=== PATIENT | female | born 1975 | race Caucasian/White ===

== ENCOUNTER 2019-03-22 15:04 | Inpatient (IN) | payer MEDICAID | END 2019-03-25 14:18 | disposition home or self-care (01) | LOC: ER 15:04 → OVERFLOW 20:40 → CENTRAL 22:48 | DX: K92.2 Gastrointestinal hemorrhage, unspecified (principal); E86.0 Dehydration; E87.6 Hypokalemia; I10 Essential (primary) hypertension ==

== ENCOUNTER 2023-09-26 10:56 | Inpatient (IN) | payer MEDICAID ==
[~2023-09-26] VITALS: Ht 157.5 cm; Wt 43.6 kg
[~2023-09-26 10:56] MED LIST: LABE200T6 PO; LEVO500T31 PO; METR500T PO
[2023-09-26 11:41] LABS: Urine Bacteria NONE SEEN /hpf (None Seen); Urine Clarity Clear (Clear); Urine Color Orange (Yellow); Urine Mucus FEW (None Seen); Urine Specific Gravity 1.019 (1.001-1.035); Urine WBC 1 /hpf (0 - 5)
[2023-09-26 11:56] LABS: Hemoglobin 14.9 g/dL (12.2-16.2); White Blood Cell 2.3 10^3/uL (4.4-10.8)
[2023-09-26 11:59] LABS: Hematocrit 43.3 % (36.0-46.0); Mean Corpuscular Hemoglobin 34.1 pg (28.0-32.0); Mean Corpuscular Hgb Conc. 34.4 g/dL (32.0-36.0); Red Blood Cells 4.37 10^6/uL (4.0-5.20); Red Cell Distribution Width 13.5 % (11.8-14.3)
[2023-09-26 12:10] LABS: Basophils % (manual) 0 (0.0-2.0); Blast Cells 0; Metamyelocytes % 0; Myelocytes % 0; Promyelocytes % 0; Reactive Lymphocytes 0
[2023-09-26 12:21] LABS: Chloride 86 mmol/L (98-107); Sodium 124 mmol/L (136-145)
[2023-09-26 12:24] LABS: Anion Gap 15 (5-15); Calcium 7.6 mg/dL (8.5-10.1); Carbon Dioxide 23 mmol/L (20-30)
[2023-09-26 12:29] LABS: Glucose 80 mg/dL (74-106)
[2023-09-26 12:31] LABS: Alanine Aminotransferase 69 U/L (7-40); Albumin 3.1 g/dL (3.2-4.8); Aspartate Aminotransferase 37 U/L (13-40); Band Neutrophils % (manual) 10; Bilirubin, Total 3.8 mg/dL (0.2-1.0); Eosinophils % (manual) 1 (0-7); Lymphocytes % (manual) 13 (10.0-50.0); Monocytes % (manual) 53 (0-12)
[2023-09-26 12:33] LABS: Macrocytosis Slight; Platelet Estimate Decreased
[2023-09-26 12:35] LABS: BUN/Creatinine Ratio 13.2 (10.0-20.0); Blood Urea Nitrogen < 5 mg/dL (9-23)
[2023-09-26 14:03] LABS: Alkaline Phosphatase 133 U/L (46-116)
[2023-09-26] MEDS ORDERED: SODIUM CHLORIDE 0.9% 1,000 ML IV ONE ×2 (14:30→17:00)
[2023-09-26] MEDS ORDERED: POTASSIUM CHL 20 Meq TABLET PO ONE (14:30)
[2023-09-26] MEDS ORDERED: CIPROFLOXACIN HCL 500 MG TAB PO ONE (16:00)
[2023-09-26] MEDS ORDERED: metroNIDAZOLE 500 MG TAB PO ONE (16:00)
[2023-09-26] MEDS ORDERED: PANTOPRAZOLE 40 MG/10 ML VIAL INJ IV ONE (17:00)
[2023-09-26 17:35] VITALS: PULSE 112; RESP 16; O2SAT 98
[2023-09-26] MEDS: SODIUM CHLORIDE 0.9% 1,000 ML IV SCH (18:37)
[2023-09-26 18:38] VITALS: BP 129/86; PULSE 105; RESP 18; TEMP 98.6
[2023-09-26 20:00] VITALS: PULSE 88
[2023-09-26] MEDS: ACETAMINOPHEN 325 MG TAB PO PRN (20:24)
[2023-09-26 22:00] VITALS: BP 111/78; PULSE 95; RESP 18; TEMP 98.1; O2SAT 97
[2023-09-26] MEDS: LABETALOL HCL 200 MG TAB PO SCH (22:00)
[2023-09-26] MEDS: metroNIDAZOLE 500MG/100ML 100 ML IV SCH (22:00)
[2023-09-26] MEDS: CIPROFLOXACIN 400MG/200ML 200 ML IV SCH (23:51)
[2023-09-27] VITALS (7 sets, daily range): BP systolic 96–156; BP diastolic 63–97; PULSE 83–131; RESP 17–21; TEMP 97.7–98.3; O2SAT 96–98
[2023-09-27] MEDS: SODIUM CHLORIDE 0.9% 1,000 ML IV SCH ×2 (01:20→08:59)
[2023-09-27] MEDS: ACETAMINOPHEN 325 MG TAB PO PRN ×2 (05:55→15:17)
[2023-09-27] MEDS: metroNIDAZOLE 500MG/100ML 100 ML IV SCH ×3 (05:57→22:00)
[2023-09-27 06:07] LABS: Alanine Aminotransferase 45 U/L (7-40); Albumin 2.7 g/dL (3.2-4.8); Alkaline Phosphatase 98 U/L (46-116); Anion Gap 14 (5-15); Aspartate Aminotransferase 29 U/L (13-40); Calcium 7.5 mg/dL (8.7-10.4); Carbon Dioxide 20 mmol/L (20-30); Glucose 65 mg/dL (74-106)
[2023-09-27 06:08] LABS: Bilirubin, Total 3.2 mg/dL (0.2-1.0); Total Protein 6.2 g/dL (5.7-8.2)
[2023-09-27 06:13] LABS: BUN/Creatinine Ratio 12.8 (10.0-20.0); Blood Urea Nitrogen < 5 mg/dL (9-23); Chloride 96 mmol/L (98-107); Sodium 130 mmol/L (136-145)
[2023-09-27 06:39] LABS: Hematocrit 41.1 % (36.0-46.0); Hemoglobin 13.9 g/dL (12.2-16.2); Mean Corpuscular Hemoglobin 34.4 pg (28.0-32.0); Mean Corpuscular Hgb Conc. 33.8 g/dL (32.0-36.0); Mean Corpuscular Volume 101.8 fL (80.0-100.0); Red Blood Cells 4.04 10^6/uL (4.0-5.20); Red Cell Distribution Width 13.5 % (11.8-14.3)
[2023-09-27 06:41] LABS: White Blood Cell 1.3 10^3/uL (4.4-10.8)
[2023-09-27 06:42] LABS: Basophils % (manual) 0 (0.0-2.0); Blast Cells 0; Eosinophils % (manual) 0 (0-7); Metamyelocytes % 0; Myelocytes % 0; Promyelocytes % 0; Reactive Lymphocytes 0
[2023-09-27 08:03] LABS: Band Neutrophils % (manual) 14; Lymphocytes % (manual) 15 (10.0-50.0); Monocytes % (manual) 43 (0-12)
[2023-09-27 08:04] LABS: Macrocytosis Slight; Platelet Estimate Decreased
[2023-09-27] MEDS: CIPROFLOXACIN 400MG/200ML 200 ML IV SCH ×2 (08:58→22:19)
[2023-09-27] MEDS: PANTOPRAZOLE 40 MG/10 ML VIAL INJ IV SCH (08:58)
[2023-09-27] MEDS: LABETALOL HCL 200 MG TAB PO SCH ×2 (08:59→22:00)
[2023-09-27] MEDS ORDERED: ENOXAPARIN SOD 40 MG/0.4 ML SYRINGE SC SCH (10:00)
[2023-09-27] MEDS: LACTATED RINGER'S 1,000 ML IV SCH (18:30)
[2023-09-27 20:01] LABS: Hematocrit 34.8 % (36.0-46.0); Hemoglobin 11.6 g/dL (12.2-16.2); Mean Corpuscular Hemoglobin 33.2 pg (28.0-32.0); Mean Corpuscular Hgb Conc. 33.3 g/dL (32.0-36.0); Mean Corpuscular Volume 99.7 fL (80.0-100.0); Red Blood Cells 3.49 10^6/uL (4.0-5.20); Red Cell Distribution Width 13.5 % (11.8-14.3)
[2023-09-27] MEDS: NICOTINE 21MG/24 HR TOPICAL PATCH TD SCH (20:06)
[2023-09-27 20:09] LABS: Band Neutrophils % (manual) 0; Basophils % (manual) 0 (0.0-2.0); Blast Cells 0; Eosinophils % (manual) 0 (0-7); Metamyelocytes % 0; Myelocytes % 0; Promyelocytes % 0; Reactive Lymphocytes 0; White Blood Cell 1.5 10^3/uL (4.4-10.8)
[2023-09-27 20:14] LABS: INR 1.29 (0.9-1.15); Prothrombin Time 13.3 sec (9.3-11.8)
[2023-09-27 20:18] LABS: Alanine Aminotransferase 30 U/L (7-40); Albumin 2.2 g/dL (3.2-4.8); Alkaline Phosphatase 71 U/L (46-116); Anion Gap 12 (5-15); Aspartate Aminotransferase 20 U/L (13-40); Calcium 7.1 mg/dL (8.7-10.4); Carbon Dioxide 20 mmol/L (20-30); Chloride 101 mmol/L (98-107); Glucose 82 mg/dL (74-106); Sodium 133 mmol/L (136-145)
[2023-09-27 20:19] LABS: BUN/Creatinine Ratio 17.9 (10.0-20.0); Bilirubin, Total 2.1 mg/dL (0.2-1.0); Blood Urea Nitrogen < 5 mg/dL (9-23)
[2023-09-27 20:21] LABS: Potassium 2.4 mmol/L (3.5-5.1)
[2023-09-27 20:23] LABS: Thyroid Stimulating Hormone 3.43 uIU/mL (0.358-3.74)
[2023-09-27 20:30] LABS: Lymphocytes % (manual) 21 (10.0-50.0); Monocytes % (manual) 50 (0-12); Platelet Estimate Decreased
[2023-09-27] MEDS: MORPHINE SULFATE INJ 2 MG/ml SYRG IV PRN (21:18)
[2023-09-27] MEDS ORDERED: POTASSIUM CHL 20MEQ/100ML 100 ML IV ONE (21:45)
[2023-09-27] MEDS ORDERED: POTASSIUM CHL 20 Meq TABLET PO ONE (21:45)
[2023-09-28] VITALS (7 sets, daily range): BP systolic 99–138; BP diastolic 68–85; PULSE 100–111; RESP 18–20; TEMP 98–98.6; O2SAT 95–99
[2023-09-28] MEDS: LACTATED RINGER'S 1,000 ML IV SCH ×2 (01:03→12:30)
[2023-09-28] MEDS: MORPHINE SULFATE INJ 2 MG/ml SYRG IV PRN (04:20)
[2023-09-28] MEDS: metroNIDAZOLE 500MG/100ML 100 ML IV SCH ×3 (05:46→23:10)
[2023-09-28] MEDS: NICOTINE 21MG/24 HR TOPICAL PATCH TD SCH (10:00)
[2023-09-28] MEDS: PANTOPRAZOLE 40 MG/10 ML VIAL INJ IV SCH (10:00)
[2023-09-28] MEDS: LABETALOL HCL 200 MG TAB PO SCH ×2 (10:01→22:26)
[2023-09-28] MEDS: CIPROFLOXACIN 400MG/200ML 200 ML IV SCH ×2 (10:01→21:37)
[2023-09-28 10:11] LABS: Hemoglobin 12.1 g/dL (12.2-16.2)
[2023-09-28 10:15] LABS: Hematocrit 35.2 % (36.0-46.0); Mean Corpuscular Hemoglobin 34.3 pg (28.0-32.0); Mean Corpuscular Hgb Conc. 34.3 g/dL (32.0-36.0); Mean Corpuscular Volume 100.1 fL (80.0-100.0); Red Blood Cells 3.52 10^6/uL (4.0-5.20); Red Cell Distribution Width 13.5 % (11.8-14.3)
[2023-09-28 10:21] LABS: Alanine Aminotransferase 25 U/L (7-40); Alkaline Phosphatase 86 U/L (46-116); Anion Gap 8 (5-15); Aspartate Aminotransferase 19 U/L (13-40); Calcium 7.5 mg/dL (8.5-10.1); Carbon Dioxide 23 mmol/L (20-30); Chloride 101 mmol/L (98-107); Glucose 90 mg/dL (74-106); Potassium 2.6 mmol/L (3.5-5.1); Sodium 132 mmol/L (136-145)
[2023-09-28 10:22] LABS: BUN/Creatinine Ratio 29.4 (10.0-20.0); Bilirubin, Total 1.6 mg/dL (0.2-1.0); Blood Urea Nitrogen < 5 mg/dL (9-23); Total Protein 4.7 g/dL (5.7-8.2)
[2023-09-28 10:23] LABS: Hepatitis B Core Total AB Negative (Negative)
[2023-09-28 10:57] LABS: Free T4 (Free Thyroxine) 0.78 ng/dL (0.89-1.76)
[2023-09-28 10:58] LABS: Folate (Folic Acid) 2.56 ng/mL (>5.38)
[2023-09-28] MEDS: FILGRASTIM (TBO) 300 MCG/0.5 ML SYRG SC SCH (10:59)
[2023-09-28 11:08] LABS: Basophils % (manual) 0 (0.0-2.0); Blast Cells 0; Metamyelocytes % 0; Myelocytes % 0; Promyelocytes % 0; Reactive Lymphocytes 0; White Blood Cell 1.7 10^3/uL (4.4-10.8)
[2023-09-28] MEDS ORDERED: GADOTERATE MEG 10 MMOL/20ml INJ (0.5MMOL/ml) IV ONE (11:29)
[2023-09-28] MEDS: Glucerna Carbsteady SHAKE Stawberry 8oz PO SCH ×3 (12:00→18:24)
[2023-09-28 13:08] LABS: Hepatitis A Total Antibody Negative (Negative); Hepatitis B Surface Antibody Negative (Negative); Hepatitis B Surface Antigen Negative (Negative); Hepatitis C Antibody Negative (Negative)
[2023-09-28 13:20] LABS: Band Neutrophils % (manual) 6; Eosinophils % (manual) 1 (0-7); Lymphocytes % (manual) 6 (10.0-50.0); Monocytes % (manual) 28 (0-12)
[2023-09-28 13:21] LABS: Platelet Estimate Decreased
[2023-09-29] VITALS (7 sets, daily range): BP systolic 87–114; BP diastolic 58–79; PULSE 87–98; RESP 17–19; TEMP 97.4–97.9; O2SAT 96–99
[2023-09-29] MEDS: LACTATED RINGER'S 1,000 ML IV SCH ×4 (01:03→20:05)
[2023-09-29 05:58] LABS: Hemoglobin 10.7 g/dL (12.2-16.2); Mean Corpuscular Hgb Conc. 35.2 g/dL (32.0-36.0); White Blood Cell 3.3 10^3/uL (4.4-10.8)
[2023-09-29 06:01] LABS: Hematocrit 30.3 % (36.0-46.0); Mean Corpuscular Hemoglobin 35.1 pg (28.0-32.0); Mean Corpuscular Volume 99.7 fL (80.0-100.0); Red Blood Cells 3.04 10^6/uL (4.0-5.20); Red Cell Distribution Width 13.4 % (11.8-14.3)
[2023-09-29] MEDS: metroNIDAZOLE 500MG/100ML 100 ML IV SCH ×3 (06:03→22:33)
[2023-09-29 06:24] LABS: Alanine Aminotransferase 16 U/L (7-40); Albumin 1.9 g/dL (3.2-4.8); Alkaline Phosphatase 48 U/L (46-116); Anion Gap 8 (5-15); Aspartate Aminotransferase 16 U/L (13-40); Calcium 7.3 mg/dL (8.5-10.1); Carbon Dioxide 24 mmol/L (20-30); Chloride 99 mmol/L (98-107); Glucose 78 mg/dL (74-106); Potassium 2.5 mmol/L (3.5-5.1); Sodium 131 mmol/L (136-145)
[2023-09-29 06:25] LABS: Band Neutrophils % (manual) 0; Basophils % (manual) 0 (0.0-2.0); Bilirubin, Total 1.4 mg/dL (0.2-1.0); Blast Cells 0; Metamyelocytes % 0; Myelocytes % 0; Promyelocytes % 0; Reactive Lymphocytes 0; Total Protein 4.5 g/dL (5.7-8.2)
[2023-09-29 06:30] LABS: BUN/Creatinine Ratio 27.8 (10.0-20.0); Blood Urea Nitrogen < 5 mg/dL (9-23)
[2023-09-29] MEDS: Glucerna Carbsteady SHAKE Stawberry 8oz PO SCH ×4 (08:00→17:57)
[2023-09-29] MEDS: FILGRASTIM (TBO) 300 MCG/0.5 ML SYRG SC SCH (10:00)
[2023-09-29] MEDS: LABETALOL HCL 200 MG TAB PO SCH ×2 (10:00→22:28)
[2023-09-29] MEDS: NICOTINE 21MG/24 HR TOPICAL PATCH TD SCH (10:00)
[2023-09-29 10:05] LABS: Eosinophils % (manual) 1 (0-7); Lymphocytes % (manual) 18 (10.0-50.0); Monocytes % (manual) 19 (0-12); Platelet Estimate Decreased
[2023-09-29] MEDS: PANTOPRAZOLE 40 MG/10 ML VIAL INJ IV SCH (10:26)
[2023-09-29] MEDS: CIPROFLOXACIN 400MG/200ML 200 ML IV SCH ×2 (10:26→21:35)
[2023-09-30] VITALS (7 sets, daily range): BP systolic 82–129; BP diastolic 50–91; PULSE 61–91; RESP 16–20; TEMP 97.4–98.1; O2SAT 94–100
[2023-09-30] MEDS: metroNIDAZOLE 500MG/100ML 100 ML IV SCH ×3 (05:33→21:07)
[2023-09-30] MEDS: LACTATED RINGER'S 1,000 ML IV SCH ×4 (06:42→21:10)
[2023-09-30 07:04] LABS: Red Blood Cells 3.06 10^6/uL (4.0-5.20); White Blood Cell 3.7 10^3/uL (4.4-10.8)
[2023-09-30 07:07] LABS: Hemoglobin 10.5 g/dL (12.2-16.2); Mean Corpuscular Hemoglobin 34.4 pg (28.0-32.0); Mean Corpuscular Volume 101.3 fL (80.0-100.0); Red Cell Distribution Width 13.2 % (11.8-14.3)
[2023-09-30 07:08] LABS: Alanine Aminotransferase 12 U/L (7-40); Albumin 1.9 g/dL (3.2-4.8); Alkaline Phosphatase 50 U/L (46-116); Anion Gap 10 (5-15); Aspartate Aminotransferase 21 U/L (13-40); Calcium 7.2 mg/dL (8.5-10.1); Carbon Dioxide 24 mmol/L (20-30); Chloride 98 mmol/L (98-107); Glucose 74 mg/dL (74-106); Sodium 132 mmol/L (136-145)
[2023-09-30 07:09] LABS: Bilirubin, Total 1.2 mg/dL (0.2-1.0); Total Protein 4.5 g/dL (5.7-8.2)
[2023-09-30 07:10] LABS: BUN/Creatinine Ratio 26.3 (10.0-20.0); Blood Urea Nitrogen < 5 mg/dL (9-23)
[2023-09-30 07:12] LABS: Potassium 2.4 mmol/L (3.5-5.1)
[2023-09-30 07:23] LABS: Band Neutrophils % (manual) 0; Basophils % (manual) 0 (0.0-2.0); Blast Cells 0; Metamyelocytes % 0; Myelocytes % 0; Promyelocytes % 0; Reactive Lymphocytes 0
[2023-09-30] MEDS ORDERED: POTASSIUM CHL 20 Meq TABLET PO ONE (07:30)
[2023-09-30] MEDS: Glucerna Carbsteady SHAKE Stawberry 8oz PO SCH ×2 (08:00→12:00)
[2023-09-30] MEDS ORDERED: OMNIPAQUE 12mg/ml 500ml ORAL SOLUTION PO ONE (08:34)
[2023-09-30] MEDS: LABETALOL HCL 200 MG TAB PO SCH ×2 (10:00→23:23)
[2023-09-30] MEDS: FILGRASTIM (TBO) 300 MCG/0.5 ML SYRG SC SCH (10:00)
[2023-09-30] MEDS: NICOTINE 21MG/24 HR TOPICAL PATCH TD SCH (10:00)
[2023-09-30] MEDS: PANTOPRAZOLE 40 MG/10 ML VIAL INJ IV SCH (11:51)
[2023-09-30] MEDS: CIPROFLOXACIN 400MG/200ML 200 ML IV SCH ×2 (11:51→22:05)
[2023-09-30 12:32] LABS: Eosinophils % (manual) 1 (0-7); Lymphocytes % (manual) 10 (10.0-50.0); Monocytes % (manual) 10 (0-12)
[2023-09-30 12:33] LABS: Platelet Estimate Decreased
[2023-09-30] MEDS: ACETAMINOPHEN 325 MG TAB PO PRN (21:05)
[2023-10-01] MEDS: LACTATED RINGER'S 1,000 ML IV SCH ×2 (03:19→11:01)
[2023-10-01 05:00] VITALS: BP 90/62; PULSE 74; RESP 19; TEMP 97.3; O2SAT 91
[2023-10-01] MEDS: metroNIDAZOLE 500MG/100ML 100 ML IV SCH ×3 (05:44→22:16)
[2023-10-01 06:51] LABS: Basophils # (auto) 0 10 ^3/uL (0-0.2); Basophils % (auto) 0.3 % (0.0-2.0); Eosinophils # (auto) 0 10 ^3/uL (0-0.8); Lymphocytes # (auto) 0.5 10 ^3/uL (0.4-5.4); Mean Corpuscular Hemoglobin 33.9 pg (28.0-32.0); Mean Corpuscular Hgb Conc. 33.9 g/dL (32.0-36.0); Mean Corpuscular Volume 100.1 fL (80.0-100.0); Monocytes # (auto) 0.6 10 ^3/uL (0-1.3)
[2023-10-01 06:54] LABS: Eosinophils % (auto) 1.1 % (0.0-7.0); Hematocrit 30.8 % (36.0-46.0); Hemoglobin 10.4 g/dL (12.2-16.2); Lymphocytes % (auto) 12.9 % (10.0-50.0); Monocytes % (auto) 15.7 % (0.0-12.0); Neutrophils # (auto) 2.8 10 ^3/uL (1.6-8.6); Nucleated Red Blood Cells % 0.2 %; Red Blood Cells 3.08 10^6/uL (4.0-5.20); Red Cell Distribution Width 13.3 % (11.8-14.3)
[2023-10-01 07:17] LABS: Alanine Aminotransferase 12 U/L (7-40); Albumin 1.9 g/dL (3.2-4.8); Alkaline Phosphatase 52 U/L (46-116); Anion Gap 9 (5-15); Aspartate Aminotransferase 26 U/L (13-40); Calcium 7.2 mg/dL (8.7-10.4); Carbon Dioxide 24 mmol/L (20-30); Chloride 95 mmol/L (98-107); Glucose 76 mg/dL (74-106); Potassium 3.3 mmol/L (3.5-5.1); Sodium 128 mmol/L (136-145)
[2023-10-01 07:18] LABS: Bilirubin, Total 1.3 mg/dL (0.2-1.0); Total Protein 4.7 g/dL (5.7-8.2)
[2023-10-01 07:24] LABS: BUN/Creatinine Ratio 23.8 (10.0-20.0); Blood Urea Nitrogen < 5 mg/dL (9-23)
[2023-10-01] MEDS: Glucerna Carbsteady SHAKE Stawberry 8oz PO SCH ×3 (07:41→17:00)
[2023-10-01] MEDS ORDERED: POTASSIUM CHLORIDE 60 MEQ, LIDOCAINE 1% (LOCAL ANESTH.) 6 ML in SODIUM CHL 0.9% 500 ML IV ONE ×2 (08:30→08:45)
[2023-10-01] MEDS: CIPROFLOXACIN 400MG/200ML 200 ML IV SCH ×2 (09:07→22:16)
[2023-10-01] MEDS: PANTOPRAZOLE 40 MG/10 ML VIAL INJ IV SCH (09:07)
[2023-10-01] MEDS: NICOTINE 21MG/24 HR TOPICAL PATCH TD SCH (09:21)
[2023-10-01 13:06] VITALS: BP 105/74; PULSE 92; RESP 18; TEMP 97.4; O2SAT 97
[2023-10-01] MEDS: MORPHINE SULFATE INJ 2 MG/ml SYRG IV PRN ×2 (13:24→22:16)
[2023-10-01] MEDS: D5W/SOD CHL 0.45% 1,000 ML IV SCH ×2 (14:23→20:45)
[2023-10-01 17:00] VITALS: BP 130/89; PULSE 106; RESP 20; TEMP 97.7; O2SAT 98
[2023-10-01 20:00] VITALS: RESP 18; O2SAT 97
[2023-10-01 22:00] VITALS: BP 142/103; PULSE 114; RESP 20; TEMP 98.3; O2SAT 97
[2023-10-02 05:00] VITALS: BP 149/104; PULSE 121; RESP 23; TEMP 97.5; O2SAT 93
[2023-10-02] MEDS: D5W/SOD CHL 0.45% 1,000 ML IV SCH ×3 (05:06→22:27)
[2023-10-02] MEDS: metroNIDAZOLE 500MG/100ML 100 ML IV SCH ×3 (05:28→22:26)
[2023-10-02 06:09] LABS: Basophils # (auto) 0 10 ^3/uL (0-0.2); Eosinophils # (auto) 0 10 ^3/uL (0-0.8); Hemoglobin 13.3 g/dL (12.2-16.2); Lymphocytes # (auto) 0.4 10 ^3/uL (0.4-5.4); Mean Corpuscular Hemoglobin 34.2 pg (28.0-32.0); Monocytes # (auto) 0.7 10 ^3/uL (0-1.3)
[2023-10-02 06:15] LABS: Basophils % (auto) 0.1 % (0.0-2.0); Eosinophils % (auto) 0.2 % (0.0-7.0); Hematocrit 38.8 % (36.0-46.0); Lymphocytes % (auto) 6.7 % (10.0-50.0); Mean Corpuscular Hgb Conc. 34.3 g/dL (32.0-36.0); Mean Corpuscular Volume 99.7 fL (80.0-100.0); Monocytes % (auto) 11.2 % (0.0-12.0); Neutrophils # (auto) 5.2 10 ^3/uL (1.6-8.6); Neutrophils % (auto) 81.8 % (37.0-80.0); Nucleated Red Blood Cells % 0.1 %; Red Blood Cells 3.89 10^6/uL (4.0-5.20); Red Cell Distribution Width 13.5 % (11.8-14.3); White Blood Cell 6.3 10^3/uL (4.4-10.8)
[2023-10-02 06:24] LABS: Alanine Aminotransferase 11 U/L (7-40); Albumin 2.2 g/dL (3.2-4.8); Alkaline Phosphatase 58 U/L (46-116); Anion Gap 5 (5-15); Aspartate Aminotransferase 27 U/L (13-40); Calcium 7.4 mg/dL (8.5-10.1); Carbon Dioxide 25 mmol/L (20-30); Chloride 98 mmol/L (98-107); Glucose 98 mg/dL (74-106); Potassium 3.4 mmol/L (3.5-5.1); Sodium 128 mmol/L (136-145)
[2023-10-02 06:25] LABS: BUN/Creatinine Ratio 22.7 (10.0-20.0); Bilirubin, Total 1.5 mg/dL (0.2-1.0); Blood Urea Nitrogen < 5 mg/dL (9-23); Total Protein 5.5 g/dL (5.7-8.2)
[2023-10-02] MEDS: MORPHINE SULFATE INJ 2 MG/ml SYRG IV PRN (06:46)
[2023-10-02] MEDS: Glucerna Carbsteady SHAKE Stawberry 8oz PO SCH ×3 (08:00→16:51)
[2023-10-02 08:53] VITALS: BP 112/74; PULSE 104; RESP 20; TEMP 97.9; O2SAT 92
[2023-10-02] MEDS: PANTOPRAZOLE 40 MG/10 ML VIAL INJ IV SCH (08:55)
[2023-10-02] MEDS: CIPROFLOXACIN 400MG/200ML 200 ML IV SCH ×2 (08:55→22:26)
[2023-10-02] MEDS: NICOTINE 21MG/24 HR TOPICAL PATCH TD SCH (08:55)
[2023-10-02 12:40] VITALS: BP 119/88; PULSE 101; RESP 20; TEMP 97.1; O2SAT 96
[2023-10-02 16:51] VITALS: BP 136/98; PULSE 98; RESP 19; TEMP 97.7; O2SAT 100
[2023-10-02 22:00] VITALS: BP 131/91; PULSE 100; RESP 16; TEMP 97.4; O2SAT 97
[2023-10-03] MEDS: D5W/SOD CHL 0.45% 1,000 ML IV SCH ×3 (04:45→20:45)
[2023-10-03 05:00] VITALS: BP 167/106; PULSE 125; RESP 25; TEMP 97.2; O2SAT 97
[2023-10-03 06:00] VITALS: BP 142/90
[2023-10-03] MEDS: metroNIDAZOLE 500MG/100ML 100 ML IV SCH ×3 (06:00→22:30)
[2023-10-03 07:30] VITALS: BP 95/62; PULSE 74; TEMP 36.2
[2023-10-03] MEDS: Glucerna Carbsteady SHAKE Stawberry 8oz PO SCH ×3 (08:00→16:38)
[2023-10-03 09:20] LABS: Alanine Aminotransferase 14 U/L (7-40); Albumin 2.3 g/dL (3.2-4.8); Alkaline Phosphatase 68 U/L (46-116); Anion Gap 10 (5-15); Aspartate Aminotransferase 28 U/L (13-40); Calcium 7.7 mg/dL (8.5-10.1); Carbon Dioxide 22 mmol/L (20-30); Chloride 98 mmol/L (98-107); Glucose 82 mg/dL (74-106); Potassium 3.2 mmol/L (3.5-5.1); Sodium 130 mmol/L (136-145)
[2023-10-03 09:21] LABS: BUN/Creatinine Ratio 16.7 (10.0-20.0); Bilirubin, Total 1.8 mg/dL (0.2-1.0); Blood Urea Nitrogen < 5 mg/dL (9-23); Total Protein 6.1 g/dL (5.7-8.2)
[2023-10-03 09:23] LABS: Basophils # (auto) 0 10 ^3/uL (0-0.2); Basophils % (auto) 0.3 % (0.0-2.0); Eosinophils # (auto) 0 10 ^3/uL (0-0.8); Eosinophils % (auto) 0.2 % (0.0-7.0); Hematocrit 39.2 % (36.0-46.0); Hemoglobin 13.3 g/dL (12.2-16.2); Lymphocytes # (auto) 0.7 10 ^3/uL (0.4-5.4); Lymphocytes % (auto) 6.8 % (10.0-50.0); Mean Corpuscular Hemoglobin 33.8 pg (28.0-32.0); Mean Corpuscular Volume 99.2 fL (80.0-100.0); Monocytes # (auto) 1.1 10 ^3/uL (0-1.3); Monocytes % (auto) 11.5 % (0.0-12.0); Neutrophils % (auto) 81.2 % (37.0-80.0); Nucleated Red Blood Cells % 0.1 %; Red Blood Cells 3.95 10^6/uL (4.0-5.20); Red Cell Distribution Width 13.4 % (11.8-14.3); White Blood Cell 9.8 10^3/uL (4.4-10.8)
[2023-10-03] MEDS: NICOTINE 21MG/24 HR TOPICAL PATCH TD SCH (10:00)
[2023-10-03] MEDS: CIPROFLOXACIN 400MG/200ML 200 ML IV SCH ×2 (10:00→22:53)
[2023-10-03] MEDS: PANTOPRAZOLE 40 MG/10 ML VIAL INJ IV SCH (10:00)
[2023-10-03] MEDS: FOLIC ACID 1 MG, MULTIPLE VITAMIN 10 ML, MAGNESIUM SULF SDV 50% 8 MEQ, THIAMINE INJ 100... INJ SCH ×10 (10:49→16:02)
[2023-10-03] MEDS: LACTULOSE 20Gm/30ML SOLN PO SCH ×3 (10:57→23:02)
[2023-10-03 12:28] VITALS: BP 103/76; PULSE 119; RESP 20; TEMP 98.4; O2SAT 93
[2023-10-03] MEDS ORDERED: GASTROGRAFIN 120 ML SOL ONE (16:02)
[2023-10-03 20:00] VITALS: PULSE 105; RESP 20
[2023-10-03 22:00] VITALS: BP 107/69; PULSE 105; RESP 20; TEMP 97.7
[2023-10-04] VITALS (7 sets, daily range): BP systolic 90–127; BP diastolic 64–83; PULSE 88–113; RESP 17–18; TEMP 97.5–98.2; O2SAT 93–100
[2023-10-04] MEDS: D5W/SOD CHL 0.45% 1,000 ML IV SCH ×3 (04:45→20:00)
[2023-10-04] MEDS: LACTULOSE 20Gm/30ML SOLN PO SCH ×3 (06:26→18:00)
[2023-10-04] MEDS: metroNIDAZOLE 500MG/100ML 100 ML IV SCH ×3 (06:26→21:09)
[2023-10-04] MEDS: Glucerna Carbsteady SHAKE Stawberry 8oz PO SCH ×3 (08:00→18:00)
[2023-10-04] MEDS: NICOTINE 21MG/24 HR TOPICAL PATCH TD SCH (10:00)
[2023-10-04] MEDS: PANTOPRAZOLE 40 MG/10 ML VIAL INJ IV SCH (10:30)
[2023-10-04] MEDS: CIPROFLOXACIN 400MG/200ML 200 ML IV SCH ×2 (10:30→21:47)
[2023-10-04] MEDS ORDERED: TPN PER PHARMACY 0 ML IV SCH ×2 (10:45→11:00)
[2023-10-04 12:27] LABS: Alanine Aminotransferase 10 U/L (7-40); Albumin 1.9 g/dL (3.2-4.8); Alkaline Phosphatase 57 U/L (46-116); Anion Gap 7 (5-15); Aspartate Aminotransferase 22 U/L (13-40); Bilirubin, Total 1.2 mg/dL (0.2-1.0); Calcium 7.1 mg/dL (8.5-10.1); Carbon Dioxide 28 mmol/L (20-30); Chloride 95 mmol/L (98-107); Glucose 126 mg/dL (74-106); Phosphorus 1.9 mg/dL (2.4-5.1); Potassium 2.5 mmol/L (3.5-5.1); Sodium 130 mmol/L (136-145); Triglycerides 58 mg/dL (< 150)
[2023-10-04 12:31] LABS: BUN/Creatinine Ratio 21.7 (10.0-20.0); Blood Urea Nitrogen < 5 mg/dL (9-23)
[2023-10-04 12:45] LABS: Magnesium 1.6 mg/dL (1.6-2.6)
[2023-10-04] MEDS ORDERED: POTASSIUM PHOSPHATE 44 MEQ in D5W 5% 250 ML IV ONE (14:00)
[2023-10-04 14:54] LABS: Basophils # (auto) 0 10 ^3/uL (0-0.2); Basophils % (auto) 0.2 % (0.0-2.0); Eosinophils # (auto) 0 10 ^3/uL (0-0.8); Eosinophils % (auto) 0.3 % (0.0-7.0); Hematocrit 32.6 % (36.0-46.0); Hemoglobin 10.9 g/dL (12.2-16.2); Lymphocytes # (auto) 0.7 10 ^3/uL (0.4-5.4); Lymphocytes % (auto) 8.5 % (10.0-50.0); Mean Corpuscular Hemoglobin 33.1 pg (28.0-32.0); Mean Corpuscular Hgb Conc. 33.5 g/dL (32.0-36.0); Mean Corpuscular Volume 98.7 fL (80.0-100.0); Monocytes # (auto) 1.1 10 ^3/uL (0-1.3); Monocytes % (auto) 13.5 % (0.0-12.0); Neutrophils # (auto) 6.3 10 ^3/uL (1.6-8.6); Neutrophils % (auto) 77.5 % (37.0-80.0); Nucleated Red Blood Cells % 0.1 %; Red Cell Distribution Width 13.3 % (11.8-14.3); White Blood Cell 8.2 10^3/uL (4.4-10.8)
[2023-10-04 15:14] LABS: INR 1.59 (0.9-1.15); Partial Thromboplastin Time 39.4 SEC (24.5-34.5); Prothrombin Time 16.2 sec (9.3-11.8)
[2023-10-04] MEDS: FOLIC ACID 1 MG, MULTIPLE VITAMIN 10 ML, MAGNESIUM SULF SDV 50% 8 MEQ, THIAMINE INJ 100... INJ SCH ×5 (16:44)
[2023-10-04] MEDS ORDERED: LIDOCAINE 1% (LOCAL ANESTH.) PF 5ml SDV ID ONE (18:30)
[2023-10-04] MEDS ORDERED: PPN PER PHARMACY IV NR ×10 (20:00)
[2023-10-04] MEDS ORDERED: DEXTROSE (50%) 50ML SYRG IV SCH (20:00)
[2023-10-04] MEDS: SODIUM CHLOR 0.9% PF (SALINE LOCK) 10ML VIAL/SYR IV SCH (21:47)
[2023-10-05] VITALS (7 sets, daily range): BP systolic 100–112; BP diastolic 65–71; PULSE 97–117; RESP 14–20; TEMP 97.3–98.3; O2SAT 93–97
[2023-10-05] MEDS: ACCU-CHEK COMFORT CURVE STRIP VI SCH ×4 (01:18→16:34)
[2023-10-05] MEDS: InsuLIN REG 1unit/0.01ml Soln (100units/ml) SC SCH ×4 (01:20→16:34)
[2023-10-05] MEDS: LACTULOSE 20Gm/30ML SOLN PO SCH ×4 (01:20→18:00)
[2023-10-05] MEDS: metroNIDAZOLE 500MG/100ML 100 ML IV SCH ×3 (06:18→21:57)
[2023-10-05 07:07] LABS: Albumin 1.8 g/dL (3.2-4.8); Alkaline Phosphatase 54 U/L (46-116); Anion Gap 4 (5-15); Aspartate Aminotransferase 18 U/L (13-40); Bilirubin, Total 0.9 mg/dL (0.2-1.0); Calcium 6.8 mg/dL (8.7-10.4); Carbon Dioxide 30 mmol/L (20-30); Chloride 96 mmol/L (98-107); Glucose 98 mg/dL (74-106); Magnesium 1.9 mg/dL (1.6-2.6); Phosphorus 1.8 mg/dL (2.4-5.1); Sodium 130 mmol/L (136-145); Total Protein 4.8 g/dL (5.7-8.2)
[2023-10-05 07:11] LABS: Alanine Aminotransferase < 9 U/L (7-40); Blood Urea Nitrogen < 5 mg/dL (9-23)
[2023-10-05 07:14] LABS: Potassium 2.4 mmol/L (3.5-5.1)
[2023-10-05] MEDS: Glucerna Carbsteady SHAKE Stawberry 8oz PO SCH ×3 (08:00→18:00)
[2023-10-05] MEDS ORDERED: POTASSIUM CHL 20MEQ/50ML 50 ML IV ONE (08:00)
[2023-10-05] MEDS: PANTOPRAZOLE 40 MG/10 ML VIAL INJ IV SCH (08:36)
[2023-10-05] MEDS: POTASSIUM CHL 20MEQ/50ML 50 ML IV SCH ×3 (08:37→16:13)
[2023-10-05] MEDS: CIPROFLOXACIN 400MG/200ML 200 ML IV SCH ×2 (08:37→21:57)
[2023-10-05] MEDS: SODIUM CHLOR 0.9% PF (SALINE LOCK) 10ML VIAL/SYR IV SCH ×2 (08:37→22:00)
[2023-10-05] MEDS ORDERED: GASTROGRAFIN 120 ML SOL ONE (08:58)
[2023-10-05] MEDS ORDERED: SODIUM PHOSPHATES 40 MEQ in D5W 5% 250 ML IV ONE (09:30)
[2023-10-05] MEDS: NICOTINE 21MG/24 HR TOPICAL PATCH TD SCH (10:00)
[2023-10-05] MEDS: ONDANSETRON HCL 4 MG/2 ML VIAL IV PRN (16:08)
[2023-10-05] MEDS: MORPHINE SULFATE INJ 2 MG/ml SYRG IV PRN (16:14)
[2023-10-05] MEDS ORDERED: TPN PER PHARMACY IV NR ×22 (20:00)
[2023-10-05] MEDS: D5W/SOD CHL 0.45% 1,000 ML IV SCH (20:00)
[2023-10-05] MEDS: ACETAMINOPHEN 325 MG TAB PO PRN (21:57)
[2023-10-06] VITALS (7 sets, daily range): BP systolic 104–147; BP diastolic 57–68; PULSE 68–116; RESP 16–19; TEMP 97.8–98.3; O2SAT 93–97
[2023-10-06] MEDS: InsuLIN REG 1unit/0.01ml Soln (100units/ml) SC SCH ×4 (00:03→17:53)
[2023-10-06] MEDS: ACCU-CHEK COMFORT CURVE STRIP VI SCH ×4 (05:45→17:49)
[2023-10-06] MEDS: metroNIDAZOLE 500MG/100ML 100 ML IV SCH ×3 (05:45→21:27)
[2023-10-06 05:52] LABS: Albumin 1.9 g/dL (3.2-4.8); Alkaline Phosphatase 64 U/L (46-116); Anion Gap 3 (5-15); Aspartate Aminotransferase 24 U/L (13-40); Calcium 6.6 mg/dL (8.7-10.4); Carbon Dioxide 31 mmol/L (20-30); Chloride 98 mmol/L (98-107); Glucose 97 mg/dL (74-106); Magnesium 1.7 mg/dL (1.6-2.6); Potassium 2.7 mmol/L (3.5-5.1); Sodium 132 mmol/L (136-145)
[2023-10-06] MEDS: LACTULOSE 20Gm/30ML SOLN PO SCH ×4 (05:52→17:49)
[2023-10-06 05:53] LABS: Bilirubin, Total 1.2 mg/dL (0.2-1.0); Phosphorus 3.4 mg/dL (2.4-5.1)
[2023-10-06 06:25] LABS: Alanine Aminotransferase < 9 U/L (7-40); BUN/Creatinine Ratio 27.8 (10.0-20.0); Blood Urea Nitrogen < 5 mg/dL (9-23)
[2023-10-06] MEDS: Glucerna Carbsteady SHAKE Stawberry 8oz PO SCH ×3 (08:18→17:49)
[2023-10-06] MEDS: CIPROFLOXACIN 400MG/200ML 200 ML IV SCH ×2 (09:45→21:31)
[2023-10-06] MEDS: PANTOPRAZOLE 40 MG/10 ML VIAL INJ IV SCH (09:45)
[2023-10-06] MEDS: SODIUM CHLOR 0.9% PF (SALINE LOCK) 10ML VIAL/SYR IV SCH ×2 (09:46→21:28)
[2023-10-06] MEDS: NICOTINE 21MG/24 HR TOPICAL PATCH TD SCH (09:46)
[2023-10-06] MEDS: ACETAMINOPHEN 325 MG TAB PO PRN (12:00)
[2023-10-06] MEDS: POTASSIUM CHL 20MEQ/50ML 50 ML IV SCH ×4 (12:00→19:22)
[2023-10-06] MEDS ORDERED: TPN PER PHARMACY IV NR ×10 (20:00)
[2023-10-06] MEDS: D5W/SOD CHL 0.45% 1,000 ML IV SCH (20:22)
[2023-10-06] MEDS: LORazepam 2MG/ML-1ML VIAL IV SCH (22:00)
[2023-10-07] VITALS (7 sets, daily range): BP systolic 104–118; BP diastolic 65–82; PULSE 109–115; RESP 14–20; TEMP 97.6–98.7; O2SAT 80–95
[2023-10-07] MEDS: ONDANSETRON HCL 4 MG/2 ML VIAL IV PRN (00:01)
[2023-10-07] MEDS: ACCU-CHEK COMFORT CURVE STRIP VI SCH ×4 (00:06→18:25)
[2023-10-07] MEDS: HYDROmorphone HCL 2 MG/ML VL/or syr IV PRN ×3 (00:06→22:37)
[2023-10-07] MEDS ORDERED: POTASSIUM CHL 20 Meq TABLET PO ONE (01:30)
[2023-10-07] MEDS: POTASSIUM CHL 20MEQ/50ML 50 ML IV SCH ×2 (01:51→03:35)
[2023-10-07] MEDS: InsuLIN REG 1unit/0.01ml Soln (100units/ml) SC SCH ×4 (06:00→18:00)
[2023-10-07] MEDS: LACTULOSE 20Gm/30ML SOLN PO SCH ×4 (06:00→18:00)
[2023-10-07] MEDS: metroNIDAZOLE 500MG/100ML 100 ML IV SCH ×3 (06:17→22:00)
[2023-10-07 06:38] LABS: Albumin 1.9 g/dL (3.2-4.8); Alkaline Phosphatase 54 U/L (46-116); Anion Gap 2 (5-15); Aspartate Aminotransferase 21 U/L (13-40); Bilirubin, Total 0.7 mg/dL (0.2-1.0); Calcium 6.8 mg/dL (8.5-10.1); Carbon Dioxide 29 mmol/L (20-30); Chloride 100 mmol/L (98-107); Glucose 204 mg/dL (74-106); Phosphorus 2.5 mg/dL (2.4-5.1); Potassium 4.3 mmol/L (3.5-5.1); Sodium 131 mmol/L (136-145); Total Protein 4.8 g/dL (5.7-8.2)
[2023-10-07 06:40] LABS: Alanine Aminotransferase < 9 U/L (7-40); BUN/Creatinine Ratio 22.7 (10.0-20.0); Blood Urea Nitrogen < 5 mg/dL (9-23)
[2023-10-07 06:42] LABS: Magnesium 1.9 mg/dL (1.6-2.6)
[2023-10-07] MEDS: Glucerna Carbsteady SHAKE Stawberry 8oz PO SCH ×3 (08:00→18:04)
[2023-10-07] MEDS: NICOTINE 21MG/24 HR TOPICAL PATCH TD SCH (10:00)
[2023-10-07] MEDS: CIPROFLOXACIN 400MG/200ML 200 ML IV SCH (10:11)
[2023-10-07] MEDS: SODIUM CHLOR 0.9% PF (SALINE LOCK) 10ML VIAL/SYR IV SCH ×2 (10:12→22:17)
[2023-10-07] MEDS: PANTOPRAZOLE 40 MG/10 ML VIAL INJ IV SCH (10:12)
[2023-10-07] MEDS ORDERED: SODIUM PHOSP 20MEQ(15MMOL) IN NS 100 ML IV ONE (10:45)
[2023-10-07] MEDS ORDERED: TPN PER PHARMACY IV NR ×10 (20:00)
[2023-10-07] MEDS: D5W/SOD CHL 0.45% 1,000 ML IV SCH (20:26)
[2023-10-07] MEDS ORDERED: phytonadione 10 MG in SODIUM CHL 0.9% 50 ML IV ONE (21:30)
[2023-10-07] MEDS: LORazepam 2MG/ML-1ML VIAL IV SCH (22:00)
[2023-10-08] VITALS (7 sets, daily range): BP systolic 89–122; BP diastolic 57–89; PULSE 109–120; RESP 18–22; TEMP 97.5–98.5; O2SAT 92–100
[2023-10-08] MEDS: ACCU-CHEK COMFORT CURVE STRIP VI SCH ×4 (00:04→17:58)
[2023-10-08] MEDS: CIPROFLOXACIN 400MG/200ML 200 ML IV SCH ×2 (00:10→20:50)
[2023-10-08] MEDS: InsuLIN REG 1unit/0.01ml Soln (100units/ml) SC SCH ×4 (00:12→17:56)
[2023-10-08] MEDS: HYDROmorphone HCL 2 MG/ML VL/or syr IV PRN ×2 (04:29→10:02)
[2023-10-08 05:10] LABS: Eosinophils # (auto) 0 10 ^3/uL (0-0.8); Hemoglobin 9.4 g/dL (12.2-16.2); Lymphocytes # (auto) 0.7 10 ^3/uL (0.4-5.4); Monocytes # (auto) 0.7 10 ^3/uL (0-1.3); Nucleated Red Blood Cells % 0.1 %
[2023-10-08 05:12] LABS: Basophils # (auto) 0.1 10 ^3/uL (0-0.2); Basophils % (auto) 0.7 % (0.0-2.0); Eosinophils % (auto) 0.4 % (0.0-7.0); Hematocrit 27.9 % (36.0-46.0); Lymphocytes % (auto) 10.7 % (10.0-50.0); Mean Corpuscular Hemoglobin 37.7 pg (28.0-32.0); Mean Corpuscular Hgb Conc. 33.6 g/dL (32.0-36.0); Mean Corpuscular Volume 112.3 fL (80.0-100.0); Monocytes % (auto) 10.1 % (0.0-12.0); Neutrophils # (auto) 5.5 10 ^3/uL (1.6-8.6); Neutrophils % (auto) 78.1 % (37.0-80.0); Red Blood Cells 2.48 10^6/uL (4.0-5.20); Red Cell Distribution Width 15.2 % (11.8-14.3)
[2023-10-08 05:20] LABS: INR 1.28 (0.9-1.15); Partial Thromboplastin Time 31.6 SEC (24.5-34.5); Prothrombin Time 13.2 sec (9.3-11.8)
[2023-10-08] MEDS: metroNIDAZOLE 500MG/100ML 100 ML IV SCH ×3 (05:55→20:50)
[2023-10-08 07:09] LABS: Chloride 103 mmol/L (98-107); Potassium 4.5 mmol/L (3.5-5.1)
[2023-10-08 07:14] LABS: Carbon Dioxide 31 mmol/L (20-30)
[2023-10-08 07:15] LABS: Calcium 7.4 mg/dL (8.5-10.1)
[2023-10-08 07:18] LABS: Alkaline Phosphatase 53 U/L (46-116)
[2023-10-08 07:19] LABS: Glucose 93 mg/dL (74-106)
[2023-10-08 07:22] LABS: Bilirubin, Total 0.6 mg/dL (0.2-1.0); Total Protein 5.1 g/dL (5.7-8.2)
[2023-10-08 07:27] LABS: BUN/Creatinine Ratio 31.3 (10.0-20.0); Blood Urea Nitrogen < 5 mg/dL (9-23)
[2023-10-08 07:56] LABS: Aspartate Aminotransferase 24 U/L (13-40); Phosphorus 3.1 mg/dL (2.4-5.1)
[2023-10-08 07:57] LABS: Alanine Aminotransferase < 9 U/L (7-40)
[2023-10-08] MEDS: Glucerna Carbsteady SHAKE Stawberry 8oz PO SCH ×2 (08:00→12:00)
[2023-10-08] MEDS: NICOTINE 21MG/24 HR TOPICAL PATCH TD SCH (09:52)
[2023-10-08] MEDS: PANTOPRAZOLE 40 MG/10 ML VIAL INJ IV SCH (09:54)
[2023-10-08] MEDS: SODIUM CHLOR 0.9% PF (SALINE LOCK) 10ML VIAL/SYR IV SCH ×2 (09:54→22:00)
[2023-10-08] MEDS ORDERED: phytonadione 10 MG in SODIUM CHL 0.9% 50 ML IV ONE (10:00)
[2023-10-08] MEDS ORDERED: FUROSEMIDE 40 MG/4 ML VIAL IV ONE (14:15)
[2023-10-08] MEDS: LORazepam 2MG/ML-1ML VIAL IV PRN (15:53)
[2023-10-08 16:15] LABS: Anion Gap 1 (5-15); Sodium 135 mmol/L (136-145)
[2023-10-08 16:48] LABS: Magnesium 1.9 mg/dL (1.6-2.6)
[2023-10-08] MEDS: D5W/SOD CHL 0.45% 1,000 ML IV SCH (20:00)
[2023-10-08] MEDS ORDERED: TPN PER PHARMACY IV NR ×11 (20:00)
[2023-10-08] MEDS: HYDROcodone-ACET 5/325MG TAB PO PRN (20:49)
[2023-10-09] VITALS (7 sets, daily range): BP systolic 89–139; BP diastolic 50–66; PULSE 102–115; RESP 17–22; TEMP 97.7–98.3; O2SAT 98–100
[2023-10-09] MEDS: HYDROcodone-ACET 5/325MG TAB PO PRN ×2 (04:58→20:30)
[2023-10-09] MEDS: metroNIDAZOLE 500MG/100ML 100 ML IV SCH ×3 (04:59→22:24)
[2023-10-09] MEDS: ACCU-CHEK COMFORT CURVE STRIP VI SCH ×4 (05:04→18:00)
[2023-10-09] MEDS: InsuLIN REG 1unit/0.01ml Soln (100units/ml) SC SCH ×4 (05:05→18:00)
[2023-10-09] MEDS: CIPROFLOXACIN 400MG/200ML 200 ML IV SCH ×2 (09:49→22:25)
[2023-10-09] MEDS: PANTOPRAZOLE 40 MG/10 ML VIAL INJ IV SCH (09:49)
[2023-10-09] MEDS: SODIUM CHLOR 0.9% PF (SALINE LOCK) 10ML VIAL/SYR IV SCH ×2 (09:51→22:00)
[2023-10-09] MEDS: NICOTINE 21MG/24 HR TOPICAL PATCH TD SCH (10:00)
[2023-10-09 11:02] LABS: Alkaline Phosphatase 47 U/L (46-116); Calcium 7.1 mg/dL (8.7-10.4); Carbon Dioxide 32 mmol/L (20-30); Chloride 102 mmol/L (98-107); Glucose 103 mg/dL (74-106); Potassium 4.4 mmol/L (3.5-5.1); Sodium 133 mmol/L (136-145)
[2023-10-09 11:03] LABS: Aspartate Aminotransferase 26 U/L (13-40); Bilirubin, Total 0.6 mg/dL (0.2-1.0); Phosphorus 2.9 mg/dL (2.4-5.1); Total Protein 5.1 g/dL (5.7-8.2)
[2023-10-09 11:13] LABS: Alanine Aminotransferase < 9 U/L (7-40); Anion Gap -1 (5-15); BUN/Creatinine Ratio 29.4 (10.0-20.0); Blood Urea Nitrogen < 5 mg/dL (9-23)
[2023-10-09] MEDS: HYDROmorphone HCL 2 MG/ML VL/or syr IV PRN (15:32)
[2023-10-09] MEDS ORDERED: TPN PER PHARMACY IV NR ×11 (20:00)
[2023-10-09] MEDS: D5W/SOD CHL 0.45% 1,000 ML IV SCH (20:00)
[2023-10-09] MEDS: ONDANSETRON HCL 4 MG/2 ML VIAL IV PRN (20:47)
[2023-10-10] VITALS (48 sets, daily range): BP systolic 88–156; BP diastolic 59–108; PULSE 88–111; RESP 12–22; TEMP 95.2–98.2; O2SAT 96–100
[2023-10-10] MEDS: ACCU-CHEK COMFORT CURVE STRIP VI SCH ×4 (05:17→17:38)
[2023-10-10] MEDS: metroNIDAZOLE 500MG/100ML 100 ML IV SCH ×3 (05:17→21:58)
[2023-10-10] MEDS: InsuLIN REG 1unit/0.01ml Soln (100units/ml) SC SCH ×4 (05:17→17:41)
[2023-10-10 06:31] LABS: Anion Gap 1 (5-15); Carbon Dioxide 32 mmol/L (20-30); Chloride 102 mmol/L (98-107); Potassium 4.4 mmol/L (3.5-5.1); Sodium 135 mmol/L (136-145)
[2023-10-10 06:32] LABS: Calcium 7.1 mg/dL (8.7-10.4)
[2023-10-10 06:36] LABS: GFR African American 680 mL/min; GFR Non-African American 562 mL/min
[2023-10-10 06:37] LABS: BUN/Creatinine Ratio 46.7 (10.0-20.0); Blood Urea Nitrogen 7 mg/dL (9-23); Glucose 101 mg/dL (74-106); Magnesium 1.9 mg/dL (1.6-2.6)
[2023-10-10 06:38] LABS: Albumin 1.9 g/dL (3.2-4.8)
[2023-10-10 07:29] LABS: Basophils # (auto) 0 10 ^3/uL (0-0.2); Basophils % (auto) 0.9 % (0.0-2.0); Eosinophils # (auto) 0 10 ^3/uL (0-0.8); Eosinophils % (auto) 1.1 % (0.0-7.0); Hematocrit 25.3 % (36.0-46.0); Hemoglobin 8.3 g/dL (12.2-16.2); Lymphocytes # (auto) 0.6 10 ^3/uL (0.4-5.4); Lymphocytes % (auto) 18.7 % (10.0-50.0); Mean Corpuscular Hemoglobin 34.2 pg (28.0-32.0); Mean Corpuscular Volume 103.6 fL (80.0-100.0); Monocytes # (auto) 0.6 10 ^3/uL (0-1.3); Monocytes % (auto) 17.5 % (0.0-12.0); Neutrophils # (auto) 2.1 10 ^3/uL (1.6-8.6); Neutrophils % (auto) 61.8 % (37.0-80.0); Nucleated Red Blood Cells % 0.1 %; Red Blood Cells 2.44 10^6/uL (4.0-5.20); Red Cell Distribution Width 14.1 % (11.8-14.3); White Blood Cell 3.4 10^3/uL (4.4-10.8)
[2023-10-10] MEDS ORDERED: levoFLOXacin 500MG 100 ML IV ONE (08:59)
[2023-10-10] MEDS ORDERED: SUCCINYLCHOLINE CHLORIDE 20 MG/ML 10ML VIAL IV ONE (09:12)
[2023-10-10] MEDS ORDERED: fentaNYL CITRATE 100 MCG/2 ML VL ONE (09:14)
[2023-10-10] MEDS ORDERED: MORPHINE SULF PF 5 MG/10 ML VIAL ONE (09:14)
[2023-10-10] MEDS ORDERED: MIDAZOLAM HCL 2MG/2ML 2ml VIAL (1mg/ml) ONE ×2 (09:15→12:20)
[2023-10-10] MEDS: NICOTINE 21MG/24 HR TOPICAL PATCH TD SCH (09:17)
[2023-10-10] MEDS ORDERED: HYDROCORTISONE SOD SUCC 100 MG/2ML INJ VIAL ONE (09:27)
[2023-10-10] MEDS ORDERED: ROCURONIUM 10MG/ML 10ML VIAL IV ONE (09:29)
[2023-10-10] MEDS ORDERED: POTASSIUM EFFERVESENT TAB 25 MEQ PO SCH (10:00)
[2023-10-10] MEDS: CIPROFLOXACIN 400MG/200ML 200 ML IV SCH ×2 (10:00→21:58)
[2023-10-10] MEDS ORDERED: ALBUMIN 5% 250 ML IV ONE ×2 (10:11→10:35)
[2023-10-10] MEDS ORDERED: CALCIUM CHLOR(10%) 100MG/ML 10ML SYRINGE IV ONE (10:35)
[2023-10-10] MEDS ORDERED: SODIUM BICARBONATE 8.4 % INJ 50ML VIAL IV ONE (12:05)
[2023-10-10] MEDS ORDERED: PROPOFOL 100 ML IV ONE (13:47)
[2023-10-10 14:15] LABS: Base Excess -2.2 mmol/L (-2.0-2.0)
[2023-10-10] MEDS: PROPOFOL 100 ML IV SCH (15:00)
[2023-10-10] MEDS: PANTOPRAZOLE 40 MG/10 ML VIAL INJ IV SCH (15:00)
[2023-10-10] MEDS: fentaNYL Drip 2500mCg/250mlNS 250 ML IV SCH (15:00)
[2023-10-10] MEDS: MIDAZOLAM DRIP 50 mg/50mL 50 ML IV SCH ×2 (15:00→19:54)
[2023-10-10] MEDS: SODIUM CHLOR 0.9% PF (SALINE LOCK) 10ML VIAL/SYR IV SCH ×2 (15:00→21:58)
[2023-10-10] MEDS ORDERED: PHENYLEPHRINE HCL 10 MG/ML VL IV ONE (19:02)
[2023-10-10] MEDS ORDERED: TPN PER PHARMACY IV NR ×11 (20:00)
[2023-10-10] MEDS: D5W/SOD CHL 0.45% 1,000 ML IV SCH (20:06)
[2023-10-11] VITALS (112 sets, daily range): BP systolic 88–128; BP diastolic 55–90; PULSE 92–116; RESP 12–17; TEMP 97.9–99.3; O2SAT 94–99
[2023-10-11] MEDS: ACCU-CHEK COMFORT CURVE STRIP VI SCH ×4 (00:36→17:16)
[2023-10-11] MEDS: InsuLIN REG 1unit/0.01ml Soln (100units/ml) SC SCH ×4 (00:42→17:16)
[2023-10-11 04:06] LABS: Basophils # (auto) 0 10 ^3/uL (0-0.2); Basophils % (auto) 0.7 % (0.0-2.0); Eosinophils # (auto) 0 10 ^3/uL (0-0.8); Eosinophils % (auto) 0.2 % (0.0-7.0); Hematocrit 31.2 % (36.0-46.0); Hemoglobin 10.6 g/dL (12.2-16.2); Lymphocytes # (auto) 0.3 10 ^3/uL (0.4-5.4); Lymphocytes % (auto) 5.6 % (10.0-50.0); Mean Corpuscular Hemoglobin 31.3 pg (28.0-32.0); Mean Corpuscular Hgb Conc. 33.9 g/dL (32.0-36.0); Mean Corpuscular Volume 92.4 fL (80.0-100.0); Monocytes # (auto) 0.6 10 ^3/uL (0-1.3); Monocytes % (auto) 13.1 % (0.0-12.0); Neutrophils # (auto) 3.9 10 ^3/uL (1.6-8.6); Neutrophils % (auto) 80.4 % (37.0-80.0); Red Blood Cells 3.37 10^6/uL (4.0-5.20); White Blood Cell 4.9 10^3/uL (4.4-10.8)
[2023-10-11 04:07] LABS: Anion Gap 2 (5-15); Carbon Dioxide 30 mmol/L (20-30); Chloride 105 mmol/L (98-107); Potassium 4.7 mmol/L (3.5-5.1); Sodium 137 mmol/L (136-145)
[2023-10-11 04:08] LABS: Calcium 7.3 mg/dL (8.7-10.4)
[2023-10-11 04:12] LABS: GFR African American 517 mL/min; GFR Non-African American 428 mL/min
[2023-10-11 04:13] LABS: BUN/Creatinine Ratio 31.6 (10.0-20.0); Blood Urea Nitrogen 6 mg/dL (9-23); Glucose 133 mg/dL (74-106)
[2023-10-11 04:14] LABS: Albumin 1.9 g/dL (3.2-4.8); Magnesium 1.8 mg/dL (1.6-2.6)
[2023-10-11 04:15] LABS: Phosphorus 3.3 mg/dL (2.4-5.1)
[2023-10-11] MEDS: metroNIDAZOLE 500MG/100ML 100 ML IV SCH ×3 (05:31→21:04)
[2023-10-11 08:17] LABS: Base Excess 1.5 mmol/L (-2.0-2.0)
[2023-10-11] MEDS ORDERED: FUROSEMIDE 40 MG/4 ML VIAL IV ONE (08:30)
[2023-10-11] MEDS: NICOTINE 21MG/24 HR TOPICAL PATCH TD SCH (10:00)
[2023-10-11] MEDS: PANTOPRAZOLE 40 MG/10 ML VIAL INJ IV SCH (10:18)
[2023-10-11] MEDS: CIPROFLOXACIN 400MG/200ML 200 ML IV SCH ×2 (10:18→21:04)
[2023-10-11] MEDS: SODIUM CHLOR 0.9% PF (SALINE LOCK) 10ML VIAL/SYR IV SCH ×2 (10:19→21:05)
[2023-10-11] MEDS: fentaNYL Drip 2500mCg/250mlNS 250 ML IV SCH (12:00)
[2023-10-11] MEDS: PROPOFOL 100 ML IV SCH (13:45)
[2023-10-11] MEDS ORDERED: TPN PER PHARMACY IV NR ×11 (20:00)
[2023-10-12] VITALS (104 sets, daily range): BP systolic 86–156; BP diastolic 52–120; PULSE 94–123; RESP 12–27; TEMP 98.1–99.5; O2SAT 93–100
[2023-10-12] MEDS: ACCU-CHEK COMFORT CURVE STRIP VI SCH ×4 (00:18→18:16)
[2023-10-12 03:52] LABS: Hematocrit 29.3 % (36.0-46.0); Hemoglobin 9.7 g/dL (12.2-16.2); Mean Corpuscular Hemoglobin 30.9 pg (28.0-32.0); Mean Corpuscular Hgb Conc. 33.2 g/dL (32.0-36.0); Mean Corpuscular Volume 92.9 fL (80.0-100.0); Red Blood Cells 3.15 10^6/uL (4.0-5.20); Red Cell Distribution Width 19.7 % (11.8-14.3); White Blood Cell 4.1 10^3/uL (4.4-10.8)
[2023-10-12 04:06] LABS: Basophils % (manual) 0 (0.0-2.0); Blast Cells 0; Metamyelocytes % 0; Myelocytes % 0; Promyelocytes % 0; Reactive Lymphocytes 0
[2023-10-12 04:10] LABS: Albumin 1.9 g/dL (3.2-4.8); Alkaline Phosphatase 32 U/L (46-116); Anion Gap 0 (5-15); Aspartate Aminotransferase 24 U/L (13-40); BUN/Creatinine Ratio 44.4 (10.0-20.0); Bilirubin, Total 0.5 mg/dL (0.2-1.0); Blood Urea Nitrogen 8 mg/dL (9-23); Calcium 7.2 mg/dL (8.7-10.4); Carbon Dioxide 33 mmol/L (20-30); Chloride 104 mmol/L (98-107); Glucose 97 mg/dL (74-106); Magnesium 1.8 mg/dL (1.6-2.6); Phosphorus 3.1 mg/dL (2.4-5.1); Potassium 4.1 mmol/L (3.5-5.1); Sodium 137 mmol/L (136-145); Total Protein 4.4 g/dL (5.7-8.2)
[2023-10-12 04:12] LABS: Alanine Aminotransferase < 9 U/L (7-40)
[2023-10-12 04:21] LABS: Triglycerides 119 mg/dL (< 150)
[2023-10-12] MEDS: metroNIDAZOLE 500MG/100ML 100 ML IV SCH ×3 (05:42→21:44)
[2023-10-12] MEDS: InsuLIN REG 1unit/0.01ml Soln (100units/ml) SC SCH ×4 (05:45→18:00)
[2023-10-12 07:37] LABS: Band Neutrophils % (manual) 3; Eosinophils % (manual) 1 (0-7); Lymphocytes % (manual) 21 (10.0-50.0); Monocytes % (manual) 11 (0-12); Platelet Estimate Decreased
[2023-10-12 07:38] LABS: Base Excess 4.4 mmol/L (-2.0-2.0)
[2023-10-12] MEDS: NICOTINE 21MG/24 HR TOPICAL PATCH TD SCH (10:00)
[2023-10-12] MEDS: PANTOPRAZOLE 40 MG/10 ML VIAL INJ IV SCH (10:40)
[2023-10-12] MEDS: SODIUM CHLOR 0.9% PF (SALINE LOCK) 10ML VIAL/SYR IV SCH ×2 (10:41→21:55)
[2023-10-12] MEDS: CIPROFLOXACIN 400MG/200ML 200 ML IV SCH ×2 (10:41→21:44)
[2023-10-12] MEDS: MIDAZOLAM DRIP 50 mg/50mL 50 ML IV SCH (11:00)
[2023-10-12] MEDS: fentaNYL Drip 2500mCg/250mlNS 250 ML IV SCH (11:00)
[2023-10-12] MEDS ORDERED: FUROSEMIDE 20 MG/2 ML VIAL IV ONE (12:00)
[2023-10-12] MEDS: HYDROmorphone HCL 2 MG/ML VL/or syr IV PRN ×3 (12:37→20:31)
[2023-10-12] MEDS: PROPOFOL 100 ML IV SCH (13:45)
[2023-10-12 13:56] LABS: Base Excess 6.1 mmol/L (-2.0-2.0)
[2023-10-12] MEDS ORDERED: TPN PER PHARMACY IV NR ×11 (20:00)
[2023-10-12] MEDS: ALBUTEROL MEDNEB 2.5 mg/3ml NEB NEB PRN (22:10)
[2023-10-13] VITALS (35 sets, daily range): BP systolic 101–182; BP diastolic 67–133; PULSE 101–117; RESP 13–26; TEMP 98.1–99; O2SAT 94–100
[2023-10-13] MEDS: HYDROmorphone HCL 2 MG/ML VL/or syr IV PRN ×6 (00:13→21:49)
[2023-10-13] MEDS: ACCU-CHEK COMFORT CURVE STRIP VI SCH ×4 (00:22→17:45)
[2023-10-13] MEDS: LORazepam 2MG/ML-1ML VIAL IV PRN ×3 (03:02→20:16)
[2023-10-13 04:27] LABS: Hematocrit 30.8 % (36.0-46.0); Hemoglobin 10.2 g/dL (12.2-16.2); Mean Corpuscular Hgb Conc. 33.1 g/dL (32.0-36.0); Mean Corpuscular Volume 93.6 fL (80.0-100.0); Red Blood Cells 3.29 10^6/uL (4.0-5.20); Red Cell Distribution Width 18.9 % (11.8-14.3); White Blood Cell 3.3 10^3/uL (4.4-10.8)
[2023-10-13 04:52] LABS: Basophils % (manual) 0 (0.0-2.0); Blast Cells 0; Eosinophils % (manual) 0 (0-7); Metamyelocytes % 0; Myelocytes % 0; Promyelocytes % 0; Reactive Lymphocytes 0
[2023-10-13 04:55] LABS: Albumin 2.1 g/dL (3.2-4.8); Alkaline Phosphatase 38 U/L (46-116); Anion Gap 2 (5-15); Aspartate Aminotransferase 31 U/L (13-40); BUN/Creatinine Ratio 46.7 (10.0-20.0); Bilirubin, Total 0.5 mg/dL (0.2-1.0); Blood Urea Nitrogen 7 mg/dL (9-23); Calcium 7.2 mg/dL (8.7-10.4); Carbon Dioxide 34 mmol/L (20-30); Chloride 101 mmol/L (98-107); Glucose 107 mg/dL (74-106); Magnesium 1.8 mg/dL (1.6-2.6); Potassium 3.3 mmol/L (3.5-5.1); Sodium 137 mmol/L (136-145); Total Protein 4.8 g/dL (5.7-8.2)
[2023-10-13 05:11] LABS: Alanine Aminotransferase < 9 U/L (7-40)
[2023-10-13] MEDS: InsuLIN REG 1unit/0.01ml Soln (100units/ml) SC SCH ×4 (06:00→18:00)
[2023-10-13] MEDS: metroNIDAZOLE 500MG/100ML 100 ML IV SCH ×3 (06:20→20:39)
[2023-10-13 06:50] LABS: Band Neutrophils % (manual) 10; Lymphocytes % (manual) 16 (10.0-50.0); Monocytes % (manual) 16 (0-12); Platelet Estimate Decreased; Stomatocytes Moderate
[2023-10-13 06:51] LABS: Target Cell FEW
[2023-10-13] MEDS: ALBUTEROL MEDNEB 2.5 mg/3ml NEB NEB PRN ×3 (07:20→21:51)
[2023-10-13] MEDS ORDERED: FUROSEMIDE 40 MG/4 ML VIAL IV ONE ×2 (09:30→14:00)
[2023-10-13] MEDS: NICOTINE 21MG/24 HR TOPICAL PATCH TD SCH (10:00)
[2023-10-13] MEDS: PANTOPRAZOLE 40 MG/10 ML VIAL INJ IV SCH (10:05)
[2023-10-13] MEDS: CIPROFLOXACIN 400MG/200ML 200 ML IV SCH ×2 (10:07→21:49)
[2023-10-13] MEDS: POTASSIUM CHL 20MEQ/100ML 100 ML IV SCH ×4 (10:08→20:36)
[2023-10-13] MEDS: SODIUM CHLOR 0.9% PF (SALINE LOCK) 10ML VIAL/SYR IV SCH ×2 (10:08→21:51)
[2023-10-13] MEDS: FUROSEMIDE 40 MG/4 ML VIAL IV SCH (17:43)
[2023-10-13] MEDS: TPN PER PHARMACY IV NR ×11 (20:36)
[2023-10-14] VITALS (8 sets, daily range): BP systolic 91–104; BP diastolic 62–72; PULSE 108–116; RESP 18–22; TEMP 97.4–97.9; O2SAT 94–100
[2023-10-14] MEDS: ACCU-CHEK COMFORT CURVE STRIP VI SCH ×5 (01:07→23:00)
[2023-10-14] MEDS: HYDROmorphone HCL 2 MG/ML VL/or syr IV PRN ×2 (02:15→09:35)
[2023-10-14] MEDS: FUROSEMIDE 40 MG/4 ML VIAL IV SCH ×2 (05:12→18:00)
[2023-10-14] MEDS: metroNIDAZOLE 500MG/100ML 100 ML IV SCH ×3 (05:14→21:30)
[2023-10-14] MEDS: InsuLIN REG 1unit/0.01ml Soln (100units/ml) SC SCH ×5 (05:18→23:00)
[2023-10-14] MEDS: LORazepam 2MG/ML-1ML VIAL IV PRN ×2 (06:34→22:39)
[2023-10-14 06:55] LABS: Hematocrit 33.4 % (36.0-46.0); Hemoglobin 11.3 g/dL (12.2-16.2); Mean Corpuscular Hemoglobin 31.4 pg (28.0-32.0); Mean Corpuscular Hgb Conc. 33.8 g/dL (32.0-36.0); Red Blood Cells 3.59 10^6/uL (4.0-5.20); Red Cell Distribution Width 18.7 % (11.8-14.3); White Blood Cell 2.9 10^3/uL (4.4-10.8)
[2023-10-14 07:13] LABS: Band Neutrophils % (manual) 0; Basophils % (manual) 0 (0.0-2.0); Blast Cells 0; Eosinophils % (manual) 0 (0-7); Metamyelocytes % 0; Myelocytes % 0; Promyelocytes % 0; Reactive Lymphocytes 0
[2023-10-14 07:15] LABS: Alanine Aminotransferase 10 U/L (7-40); Albumin 2.3 g/dL (3.2-4.8); Alkaline Phosphatase 57 U/L (46-116); Anion Gap 4 (5-15); Aspartate Aminotransferase 41 U/L (13-40); Bilirubin, Total 0.5 mg/dL (0.2-1.0); Blood Urea Nitrogen 9 mg/dL (9-23); Calcium 7.7 mg/dL (8.5-10.1); Carbon Dioxide 34 mmol/L (20-30); Chloride 96 mmol/L (98-107); Glucose 107 mg/dL (74-106); Phosphorus 3.7 mg/dL (2.4-5.1); Potassium 3.5 mmol/L (3.5-5.1); Sodium 134 mmol/L (136-145); Total Protein 5.4 g/dL (5.7-8.2); Triglycerides 129 mg/dL (< 150)
[2023-10-14 07:52] LABS: Magnesium 1.8 mg/dL (1.6-2.6)
[2023-10-14] MEDS: PANTOPRAZOLE 40 MG/10 ML VIAL INJ IV SCH (09:27)
[2023-10-14] MEDS: CIPROFLOXACIN 400MG/200ML 200 ML IV SCH ×2 (09:28→22:38)
[2023-10-14] MEDS: SODIUM CHLOR 0.9% PF (SALINE LOCK) 10ML VIAL/SYR IV SCH ×2 (09:28→22:38)
[2023-10-14] MEDS: ONDANSETRON HCL 4 MG/2 ML VIAL IV PRN (09:28)
[2023-10-14] MEDS: NICOTINE 21MG/24 HR TOPICAL PATCH TD SCH (09:28)
[2023-10-14 10:43] LABS: Lymphocytes % (manual) 18 (10.0-50.0); Monocytes % (manual) 21 (0-12); Platelet Estimate Decreased
[2023-10-14] MEDS ORDERED: ALBUTEROL SULF 2.5 MG/0.5ML(0.5%) NEB SOLN ONE (16:01)
[2023-10-14] MEDS: TPN PER PHARMACY IV NR ×11 (19:52)
[2023-10-14] MEDS ORDERED: TPN PER PHARMACY IV NR ×10 (20:00)
[2023-10-15] VITALS (11 sets, daily range): BP systolic 98–107; BP diastolic 63–77; PULSE 73–128; RESP 16–20; TEMP 97.3–97.7; O2SAT 94–100
[2023-10-15] MEDS: HYDROcodone-ACET 5/325MG TAB PO PRN ×2 (04:24→11:21)
[2023-10-15] MEDS: ACCU-CHEK COMFORT CURVE STRIP VI SCH ×3 (05:52→18:30)
[2023-10-15] MEDS: FUROSEMIDE 40 MG/4 ML VIAL IV SCH ×2 (05:53→18:31)
[2023-10-15] MEDS: InsuLIN REG 1unit/0.01ml Soln (100units/ml) SC SCH ×3 (05:53→18:41)
[2023-10-15 07:19] LABS: Alkaline Phosphatase 62 U/L (46-116); Anion Gap 3 (5-15); Aspartate Aminotransferase 36 U/L (13-40); Blood Urea Nitrogen 9 mg/dL (9-23); Carbon Dioxide 31 mmol/L (20-30); Chloride 101 mmol/L (98-107); Glucose 101 mg/dL (74-106); Magnesium 1.9 mg/dL (1.6-2.6); Potassium 3.2 mmol/L (3.5-5.1); Sodium 135 mmol/L (136-145)
[2023-10-15 07:20] LABS: Bilirubin, Total 0.5 mg/dL (0.2-1.0); Phosphorus 2.9 mg/dL (2.4-5.1); Total Protein 4.8 g/dL (5.7-8.2)
[2023-10-15 07:22] LABS: Alanine Aminotransferase < 9 U/L (7-40)
[2023-10-15] MEDS: NICOTINE 21MG/24 HR TOPICAL PATCH TD SCH (09:21)
[2023-10-15] MEDS: PANTOPRAZOLE 40 MG/10 ML VIAL INJ IV SCH (09:21)
[2023-10-15] MEDS: SODIUM CHLOR 0.9% PF (SALINE LOCK) 10ML VIAL/SYR IV SCH ×2 (09:22→21:12)
[2023-10-15] MEDS: CIPROFLOXACIN 400MG/200ML 200 ML IV SCH ×2 (09:22→21:11)
[2023-10-15] MEDS ORDERED: POTASSIUM CHL 20MEQ/100ML 100 ML IV SCH (09:30)
[2023-10-15] MEDS ORDERED: POTASSIUM EFFERVESENT TAB 25 MEQ PO ONE (10:15)
[2023-10-15] MEDS ORDERED: ALBUTEROL SULF 2.5 MG/0.5ML(0.5%) NEB SOLN ONE ×2 (11:58→16:42)
[2023-10-15] MEDS: HYDROmorphone HCL 2 MG/ML VL/or syr IV PRN (14:11)
[2023-10-15] MEDS: ONDANSETRON HCL 4 MG/2 ML VIAL IV PRN (15:37)
[2023-10-15] MEDS: ALBUTEROL MEDNEB 2.5 mg/3ml NEB NEB PRN (16:43)
[2023-10-15] MEDS ORDERED: FUROSEMIDE 40 MG/4 ML VIAL IV ONE (17:30)
[2023-10-15] MEDS ORDERED: POTASSIUM EFFERVESENT TAB 25 MEQ PO SCH (18:00)
[2023-10-15] MEDS: LORazepam 2MG/ML-1ML VIAL IV PRN (18:31)
[2023-10-15] MEDS ORDERED: TPN PER PHARMACY IV NR ×10 (20:00)
[2023-10-16] VITALS (13 sets, daily range): BP systolic 99–126; BP diastolic 33–85; PULSE 113–125; RESP 16–22; TEMP 97.3–98.6; O2SAT 94–100
[2023-10-16] MEDS: ACCU-CHEK COMFORT CURVE STRIP VI SCH ×5 (00:07→23:05)
[2023-10-16] MEDS: LORazepam 2MG/ML-1ML VIAL IV PRN (00:51)
[2023-10-16] MEDS: FUROSEMIDE 40 MG/4 ML VIAL IV SCH ×2 (05:06→17:54)
[2023-10-16] MEDS: InsuLIN REG 1unit/0.01ml Soln (100units/ml) SC SCH ×5 (05:06→23:06)
[2023-10-16 05:58] LABS: Alanine Aminotransferase 10 U/L (7-40); Albumin 2.3 g/dL (3.2-4.8); Alkaline Phosphatase 76 U/L (46-116); Anion Gap 4 (5-15); Aspartate Aminotransferase 46 U/L (13-40); BUN/Creatinine Ratio 47.1 (10.0-20.0); Bilirubin, Total 0.6 mg/dL (0.2-1.0); Blood Urea Nitrogen 8 mg/dL (9-23); Calcium 7.5 mg/dL (8.7-10.4); Carbon Dioxide 31 mmol/L (20-30); Chloride 100 mmol/L (98-107); Glucose 105 mg/dL (74-106); Magnesium 1.9 mg/dL (1.6-2.6); Sodium 135 mmol/L (136-145); Total Protein 5.6 g/dL (5.7-8.2)
[2023-10-16] MEDS: SODIUM CHLOR 0.9% PF (SALINE LOCK) 10ML VIAL/SYR IV SCH ×2 (09:43→21:34)
[2023-10-16] MEDS: CIPROFLOXACIN 400MG/200ML 200 ML IV SCH ×2 (09:43→21:33)
[2023-10-16] MEDS: PANTOPRAZOLE 40 MG/10 ML VIAL INJ IV SCH (09:43)
[2023-10-16] MEDS: NICOTINE 21MG/24 HR TOPICAL PATCH TD SCH (09:43)
[2023-10-16] MEDS: HYDROcodone-ACET 5/325MG TAB PO PRN ×2 (09:43→16:20)
[2023-10-16] MEDS: ALBUTEROL SULF 2.5 MG/0.5ML(0.5%) NEB SOLN NEB PRN ×2 (11:02→21:44)
[2023-10-16] MEDS: POTASSIUM EFFERVESENT TAB 25 MEQ PO SCH (17:53)
[2023-10-16] MEDS: TPN PER PHARMACY IV NR ×10 (21:13)
[2023-10-17] VITALS (12 sets, daily range): BP systolic 86–117; BP diastolic 53–76; PULSE 81–120; RESP 13–20; TEMP 97.2–98.8; O2SAT 96–100
[2023-10-17] MEDS: HYDROcodone-ACET 5/325MG TAB PO PRN ×2 (01:35→10:33)
[2023-10-17] MEDS: InsuLIN REG 1unit/0.01ml Soln (100units/ml) SC SCH ×3 (04:55→18:00)
[2023-10-17] MEDS: ACCU-CHEK COMFORT CURVE STRIP VI SCH ×3 (04:55→18:42)
[2023-10-17] MEDS: FUROSEMIDE 40 MG/4 ML VIAL IV SCH ×2 (05:22→18:08)
[2023-10-17 07:10] LABS: Potassium 4.1 mmol/L (3.5-5.1)
[2023-10-17 07:11] LABS: Calcium 7.9 mg/dL (8.5-10.1)
[2023-10-17 07:16] LABS: BUN/Creatinine Ratio 54.5 (10.0-20.0)
[2023-10-17 07:18] LABS: Albumin 2.4 g/dL (3.2-4.8); Phosphorus 3.9 mg/dL (2.4-5.1)
[2023-10-17] MEDS: NICOTINE 21MG/24 HR TOPICAL PATCH TD SCH (10:00)
[2023-10-17] MEDS: PANTOPRAZOLE 40 MG/10 ML VIAL INJ IV SCH (10:33)
[2023-10-17] MEDS: SODIUM CHLOR 0.9% PF (SALINE LOCK) 10ML VIAL/SYR IV SCH ×2 (10:35→20:58)
[2023-10-17] MEDS: CIPROFLOXACIN 400MG/200ML 200 ML IV SCH ×2 (10:36→20:59)
[2023-10-17 10:41] LABS: Magnesium 1.9 mg/dL (1.6-2.6)
[2023-10-17] MEDS: LORazepam 2MG/ML-1ML VIAL IV PRN (15:45)
[2023-10-17] MEDS: POTASSIUM EFFERVESENT TAB 25 MEQ PO SCH (18:08)
[2023-10-17] MEDS: TPN PER PHARMACY IV NR ×10 (19:49)
[2023-10-17] MEDS ORDERED: TPN PER PHARMACY IV NR ×10 (20:00)
[2023-10-18] VITALS (11 sets, daily range): BP systolic 87–102; BP diastolic 62–76; PULSE 107–120; RESP 16–22; TEMP 97.3–98; O2SAT 98–100
[2023-10-18] MEDS: ACCU-CHEK COMFORT CURVE STRIP VI SCH ×4 (00:21→17:02)
[2023-10-18] MEDS: ALBUTEROL SULF 2.5 MG/0.5ML(0.5%) NEB SOLN NEB PRN ×2 (01:52→10:06)
[2023-10-18] MEDS: FUROSEMIDE 40 MG/4 ML VIAL IV SCH ×2 (05:23→17:29)
[2023-10-18] MEDS: InsuLIN REG 1unit/0.01ml Soln (100units/ml) SC SCH ×4 (05:32→17:02)
[2023-10-18 07:00] LABS: Potassium 3.8 mmol/L (3.5-5.1)
[2023-10-18 07:01] LABS: Calcium 7.8 mg/dL (8.7-10.4)
[2023-10-18 07:06] LABS: BUN/Creatinine Ratio 45.8 (10.0-20.0)
[2023-10-18 07:07] LABS: Albumin 2.5 g/dL (3.2-4.8)
[2023-10-18 07:08] LABS: Phosphorus 3.7 mg/dL (2.4-5.1)
[2023-10-18] MEDS: PANTOPRAZOLE 40 MG/10 ML VIAL INJ IV SCH (09:53)
[2023-10-18] MEDS: CIPROFLOXACIN 400MG/200ML 200 ML IV SCH ×2 (09:53→21:40)
[2023-10-18] MEDS: ACETAMINOPHEN 325 MG TAB PO PRN ×2 (09:53→22:06)
[2023-10-18] MEDS: NICOTINE 21MG/24 HR TOPICAL PATCH TD SCH (09:54)
[2023-10-18] MEDS: SODIUM CHLOR 0.9% PF (SALINE LOCK) 10ML VIAL/SYR IV SCH ×2 (09:54→21:40)
[2023-10-18] MEDS ORDERED: SODIUM CHLORIDE 0.9% 1,000 ML IV ONE (12:15)
[2023-10-18] MEDS: LORazepam 0.5 MG TAB PO PRN (15:07)
[2023-10-18] MEDS: POTASSIUM EFFERVESENT TAB 25 MEQ PO SCH (17:29)
[2023-10-18] MEDS ORDERED: TPN PER PHARMACY IV NR ×10 (20:00)
[2023-10-19] VITALS (17 sets, daily range): BP systolic 90–109; BP diastolic 59–76; PULSE 102–120; RESP 16–22; TEMP 97.8–98.2; O2SAT 92–100
[2023-10-19] MEDS: ALBUTEROL SULF 2.5 MG/0.5ML(0.5%) NEB SOLN NEB PRN ×4 (04:27→21:27)
[2023-10-19] MEDS: ACCU-CHEK COMFORT CURVE STRIP VI SCH ×4 (05:12→18:03)
[2023-10-19] MEDS: InsuLIN REG 1unit/0.01ml Soln (100units/ml) SC SCH ×4 (05:13→18:00)
[2023-10-19] MEDS: FUROSEMIDE 40 MG/4 ML VIAL IV SCH ×2 (05:21→18:00)
[2023-10-19] MEDS: ACETAMINOPHEN 325 MG TAB PO PRN ×2 (06:26→18:46)
[2023-10-19 07:08] LABS: Alanine Aminotransferase 29 U/L (7-40); Albumin 2.7 g/dL (3.2-4.8); Alkaline Phosphatase 102 U/L (46-116); Anion Gap 6 (5-15); Aspartate Aminotransferase 93 U/L (13-40); BUN/Creatinine Ratio 42.3 (10.0-20.0); Blood Urea Nitrogen 11 mg/dL (9-23); Carbon Dioxide 30 mmol/L (20-30); Chloride 100 mmol/L (98-107); Glucose 109 mg/dL (74-106); Potassium 3.6 mmol/L (3.5-5.1); Sodium 136 mmol/L (136-145); Triglycerides 235 mg/dL (< 150)
[2023-10-19 07:09] LABS: Bilirubin, Total 0.4 mg/dL (0.2-1.0); Phosphorus 3.9 mg/dL (2.4-5.1); Total Protein 6.4 g/dL (5.7-8.2)
[2023-10-19 07:53] LABS: Magnesium 2.1 mg/dL (1.6-2.6)
[2023-10-19] MEDS: NICOTINE 21MG/24 HR TOPICAL PATCH TD SCH (10:00)
[2023-10-19] MEDS: PANTOPRAZOLE 40 MG/10 ML VIAL INJ IV SCH (10:55)
[2023-10-19] MEDS: CIPROFLOXACIN 400MG/200ML 200 ML IV SCH ×2 (10:55→22:28)
[2023-10-19] MEDS: SODIUM CHLOR 0.9% PF (SALINE LOCK) 10ML VIAL/SYR IV SCH ×2 (10:56→22:00)
[2023-10-19] MEDS: Ensure HIGH Protein Chocolate 8oz Bottle PO SCH ×2 (12:00→18:02)
[2023-10-19] MEDS: ONDANSETRON HCL 4 MG/2 ML VIAL IV PRN (14:54)
[2023-10-19] MEDS: POTASSIUM EFFERVESENT TAB 25 MEQ PO SCH (18:02)
[2023-10-19] MEDS ORDERED: TPN PER PHARMACY IV NR ×9 (20:00)
[2023-10-19] MEDS: metroNIDAZOLE 500MG/100ML 100 ML IV SCH (22:32)
[2023-10-20] VITALS (13 sets, daily range): BP systolic 95–120; BP diastolic 66–78; PULSE 72–124; RESP 16–22; TEMP 97.2–97.6; O2SAT 92–100
[2023-10-20] MEDS: ACCU-CHEK COMFORT CURVE STRIP VI SCH ×4 (00:08→17:56)
[2023-10-20] MEDS: ACETAMINOPHEN 325 MG TAB PO PRN (01:49)
[2023-10-20] MEDS: MORPHINE SULFATE INJ 2 MG/ml SYRG IV PRN ×3 (02:45→14:41)
[2023-10-20] MEDS: FUROSEMIDE 40 MG/4 ML VIAL IV SCH ×3 (06:00→17:55)
[2023-10-20] MEDS: InsuLIN REG 1unit/0.01ml Soln (100units/ml) SC SCH ×4 (06:00→17:57)
[2023-10-20 06:30] LABS: Alanine Aminotransferase 26 U/L (7-40); Albumin 2.5 g/dL (3.2-4.8); Alkaline Phosphatase 89 U/L (46-116); Anion Gap 3 (5-15); Aspartate Aminotransferase 67 U/L (13-40); BUN/Creatinine Ratio 52.4 (10.0-20.0); Bilirubin, Total 0.3 mg/dL (0.2-1.0); Blood Urea Nitrogen 11 mg/dL (9-23); Calcium 7.7 mg/dL (8.7-10.4); Carbon Dioxide 28 mmol/L (20-30); Chloride 106 mmol/L (98-107); Glucose 119 mg/dL (74-106); Magnesium 2.1 mg/dL (1.6-2.6); Phosphorus 4.1 mg/dL (2.4-5.1); Potassium 4.7 mmol/L (3.5-5.1); Sodium 137 mmol/L (136-145); Total Protein 5.8 g/dL (5.7-8.2)
[2023-10-20] MEDS: Ensure HIGH Protein Chocolate 8oz Bottle PO SCH ×3 (08:00→18:00)
[2023-10-20] MEDS: NICOTINE 21MG/24 HR TOPICAL PATCH TD SCH (10:00)
[2023-10-20] MEDS: SODIUM CHLOR 0.9% PF (SALINE LOCK) 10ML VIAL/SYR IV SCH ×2 (10:00→20:34)
[2023-10-20] MEDS: metroNIDAZOLE 500MG/100ML 100 ML IV SCH ×2 (11:10→21:39)
[2023-10-20] MEDS: PANTOPRAZOLE 40 MG/10 ML VIAL INJ IV SCH (11:11)
[2023-10-20] MEDS ORDERED: CALCIUM GLUC 1,000mg/50ml-NS 50 ML IV ONE (12:15)
[2023-10-20] MEDS: ALBUTEROL SULF 2.5 MG/0.5ML(0.5%) NEB SOLN NEB PRN ×2 (13:34→19:36)
[2023-10-20] MEDS: LORazepam 0.5 MG TAB PO PRN (17:54)
[2023-10-20] MEDS: POTASSIUM EFFERVESENT TAB 25 MEQ PO SCH (17:56)
[2023-10-20] MEDS ORDERED: TPN PER PHARMACY IV NR ×10 (20:00)
[2023-10-21] VITALS (15 sets, daily range): BP systolic 93–129; BP diastolic 59–91; PULSE 102–124; RESP 17–22; TEMP 97.5–98.4; O2SAT 90–100
[2023-10-21] MEDS: ACCU-CHEK COMFORT CURVE STRIP VI SCH ×4 (00:35→18:00)
[2023-10-21] MEDS: ALBUTEROL SULF 2.5 MG/0.5ML(0.5%) NEB SOLN NEB PRN (01:13)
[2023-10-21] MEDS: HYDROcodone-ACET 5/325MG TAB PO PRN ×2 (01:14→23:13)
[2023-10-21] MEDS: InsuLIN REG 1unit/0.01ml Soln (100units/ml) SC SCH ×4 (06:00→18:00)
[2023-10-21] MEDS: FUROSEMIDE 40 MG/4 ML VIAL IV SCH ×2 (06:52→18:00)
[2023-10-21] MEDS: ALBUTEROL SULF 2.5 MG/0.5ML(0.5%) NEB SOLN NEB SCH ×3 (07:12→18:11)
[2023-10-21 07:17] LABS: Alanine Aminotransferase 25 U/L (7-40); Albumin 2.8 g/dL (3.2-4.8); Alkaline Phosphatase 95 U/L (46-116); Anion Gap 2 (5-15); Aspartate Aminotransferase 51 U/L (13-40); Blood Urea Nitrogen 14 mg/dL (9-23); Calcium 8.1 mg/dL (8.7-10.4); Carbon Dioxide 27 mmol/L (20-30); Chloride 107 mmol/L (98-107); Glucose 140 mg/dL (74-106); Magnesium 2.2 mg/dL (1.6-2.6); Sodium 136 mmol/L (136-145)
[2023-10-21 07:18] LABS: Bilirubin, Total 0.3 mg/dL (0.2-1.0); Phosphorus 3.8 mg/dL (2.4-5.1); Total Protein 6.4 g/dL (5.7-8.2)
[2023-10-21] MEDS: Ensure HIGH Protein Chocolate 8oz Bottle PO SCH ×3 (08:00→18:05)
[2023-10-21 09:17] LABS: Hematocrit 26.5 % (36.0-46.0); Hemoglobin 8.7 g/dL (12.2-16.2); Mean Corpuscular Hemoglobin 31.6 pg (28.0-32.0); Mean Corpuscular Hgb Conc. 32.6 g/dL (32.0-36.0); Mean Corpuscular Volume 96.9 fL (80.0-100.0); Red Blood Cells 2.74 10^6/uL (4.0-5.20); Red Cell Distribution Width 19.4 % (11.8-14.3); White Blood Cell 5.1 10^3/uL (4.4-10.8)
[2023-10-21 09:22] LABS: Band Neutrophils % (manual) 0; Basophils % (manual) 0 (0.0-2.0); Metamyelocytes % 0; Myelocytes % 0; Promyelocytes % 0; Reactive Lymphocytes 0
[2023-10-21] MEDS: NICOTINE 21MG/24 HR TOPICAL PATCH TD SCH (09:39)
[2023-10-21] MEDS: PANTOPRAZOLE 40 MG/10 ML VIAL INJ IV SCH (09:39)
[2023-10-21] MEDS: metroNIDAZOLE 500MG/100ML 100 ML IV SCH ×2 (09:39→21:48)
[2023-10-21] MEDS: SODIUM CHLOR 0.9% PF (SALINE LOCK) 10ML VIAL/SYR IV SCH ×2 (09:39→21:48)
[2023-10-21 12:15] LABS: Blast Cells 1; Eosinophils % (manual) 2 (0-7); Lymphocytes % (manual) 15 (10.0-50.0); Monocytes % (manual) 17 (0-12); Platelet Estimate Adequate
[2023-10-21] MEDS: POTASSIUM EFFERVESENT TAB 25 MEQ PO SCH (18:00)
[2023-10-21] MEDS: TPN PER PHARMACY IV NR ×9 (20:21)
[2023-10-22] VITALS (17 sets, daily range): BP systolic 95–103; BP diastolic 66–72; PULSE 99–114; RESP 17–23; TEMP 97.5–98.2; O2SAT 96–100
[2023-10-22] MEDS: ACCU-CHEK COMFORT CURVE STRIP VI SCH ×4 (00:19→17:33)
[2023-10-22] MEDS: ALBUTEROL SULF 2.5 MG/0.5ML(0.5%) NEB SOLN NEB SCH ×4 (00:33→19:25)
[2023-10-22] MEDS: FUROSEMIDE 40 MG/4 ML VIAL IV SCH ×2 (05:50→17:36)
[2023-10-22] MEDS: InsuLIN REG 1unit/0.01ml Soln (100units/ml) SC SCH ×4 (05:57→17:33)
[2023-10-22 07:58] LABS: Alanine Aminotransferase 22 U/L (7-40); Alkaline Phosphatase 92 U/L (46-116); Anion Gap 3 (5-15); BUN/Creatinine Ratio 82.4 (10.0-20.0); Blood Urea Nitrogen 14 mg/dL (9-23); Calcium 7.8 mg/dL (8.7-10.4); Carbon Dioxide 30 mmol/L (20-30); Chloride 102 mmol/L (98-107); Glucose 103 mg/dL (74-106); Potassium 3.8 mmol/L (3.5-5.1); Sodium 135 mmol/L (136-145)
[2023-10-22 07:59] LABS: Magnesium 2.1 mg/dL (1.6-2.6)
[2023-10-22 08:00] LABS: Albumin 2.8 g/dL (3.2-4.8); Aspartate Aminotransferase 40 U/L (13-40); Bilirubin, Total 0.3 mg/dL (0.2-1.0); Total Protein 6.5 g/dL (5.7-8.2)
[2023-10-22] MEDS: Ensure HIGH Protein Chocolate 8oz Bottle PO SCH ×3 (08:00→18:20)
[2023-10-22] MEDS: metroNIDAZOLE 500MG/100ML 100 ML IV SCH ×2 (09:45→22:34)
[2023-10-22] MEDS: SODIUM CHLOR 0.9% PF (SALINE LOCK) 10ML VIAL/SYR IV SCH ×2 (09:45→22:00)
[2023-10-22] MEDS: PANTOPRAZOLE 40 MG/10 ML VIAL INJ IV SCH (09:45)
[2023-10-22] MEDS: NICOTINE 21MG/24 HR TOPICAL PATCH TD SCH (09:47)
[2023-10-22] MEDS: MORPHINE SULFATE INJ 2 MG/ml SYRG IV PRN ×2 (09:50→15:34)
[2023-10-22] MEDS: POTASSIUM EFFERVESENT TAB 25 MEQ PO SCH (18:00)
[2023-10-22] MEDS: TPN PER PHARMACY IV NR ×18 (19:58→21:00)
[2023-10-23] VITALS (15 sets, daily range): BP systolic 100–113; BP diastolic 70–79; PULSE 76–109; RESP 15–23; TEMP 97.6–98; O2SAT 97–100
[2023-10-23] MEDS: ALBUTEROL SULF 2.5 MG/0.5ML(0.5%) NEB SOLN NEB SCH ×4 (00:17→19:10)
[2023-10-23] MEDS: ACCU-CHEK COMFORT CURVE STRIP VI SCH ×3 (00:23→12:05)
[2023-10-23] MEDS: MORPHINE SULFATE INJ 2 MG/ml SYRG IV PRN ×2 (00:29→17:45)
[2023-10-23] MEDS: InsuLIN REG 1unit/0.01ml Soln (100units/ml) SC SCH ×3 (05:23→12:00)
[2023-10-23] MEDS: FUROSEMIDE 40 MG/4 ML VIAL IV SCH ×2 (06:00→18:00)
[2023-10-23 07:29] LABS: Alanine Aminotransferase 41 U/L (7-40); Albumin 2.7 g/dL (3.2-4.8); Alkaline Phosphatase 542 U/L (46-116); Anion Gap 4 (5-15); Aspartate Aminotransferase 100 U/L (13-40); BUN/Creatinine Ratio 61.1 (10.0-20.0); Bilirubin, Total 0.3 mg/dL (0.2-1.0); Blood Urea Nitrogen 11 mg/dL (9-23); Calcium 7.8 mg/dL (8.7-10.4); Carbon Dioxide 30 mmol/L (20-30); Chloride 102 mmol/L (98-107); Glucose 116 mg/dL (74-106); Magnesium 2.1 mg/dL (1.6-2.6); Phosphorus 2.9 mg/dL (2.4-5.1); Potassium 3.5 mmol/L (3.5-5.1); Sodium 136 mmol/L (136-145); Total Protein 6.3 g/dL (5.7-8.2)
[2023-10-23] MEDS: Ensure HIGH Protein Chocolate 8oz Bottle PO SCH ×3 (08:00→18:00)
[2023-10-23] MEDS: NICOTINE 21MG/24 HR TOPICAL PATCH TD SCH (10:00)
[2023-10-23] MEDS ORDERED: ALBUMIN 25% 100 ML IV ONE ×3 (10:15→21:28)
[2023-10-23] MEDS ORDERED: levoFLOXacin 500MG 100 ML IV ONE (10:15)
[2023-10-23] MEDS: ALBUMIN 25% 100 ML IV SCH ×2 (10:20→16:45)
[2023-10-23] MEDS: metroNIDAZOLE 500MG/100ML 100 ML IV SCH ×2 (10:21→22:00)
[2023-10-23] MEDS: PANTOPRAZOLE 40 MG/10 ML VIAL INJ IV SCH (10:21)
[2023-10-23] MEDS: SODIUM CHLOR 0.9% PF (SALINE LOCK) 10ML VIAL/SYR IV SCH ×2 (10:22→22:00)
[2023-10-23] MEDS: levoFLOXacin 500MG 100 ML IV SCH (11:58)
[2023-10-23] MEDS: TPN PER PHARMACY IV NR ×9 (19:58)
[2023-10-23] MEDS ORDERED: TPN PER PHARMACY IV NR ×10 (20:00)
[2023-10-24] VITALS (15 sets, daily range): BP systolic 102–132; BP diastolic 66–94; PULSE 74–118; RESP 18–28; TEMP 37; O2SAT 96–100
[2023-10-24] MEDS: ALBUTEROL SULF 2.5 MG/0.5ML(0.5%) NEB SOLN NEB SCH ×4 (00:08→18:53)
[2023-10-24] MEDS: ALBUMIN 25% 100 ML IV SCH (00:45)
[2023-10-24] MEDS: ACCU-CHEK COMFORT CURVE STRIP VI SCH ×4 (06:00→18:11)
[2023-10-24] MEDS: FUROSEMIDE 40 MG/4 ML VIAL IV SCH ×2 (06:00→17:56)
[2023-10-24] MEDS: InsuLIN REG 1unit/0.01ml Soln (100units/ml) SC SCH ×4 (06:00→18:00)
[2023-10-24 08:26] LABS: Base Excess 3.1 mmol/L (-2.0-2.0)
[2023-10-24 08:37] LABS: Hematocrit 30.1 % (36.0-46.0); Hemoglobin 9.7 g/dL (12.2-16.2); Mean Corpuscular Hemoglobin 31.9 pg (28.0-32.0); Mean Corpuscular Hgb Conc. 32.3 g/dL (32.0-36.0); Mean Corpuscular Volume 98.8 fL (80.0-100.0); Red Blood Cells 3.04 10^6/uL (4.0-5.20); Red Cell Distribution Width 19.9 % (11.8-14.3); White Blood Cell 4.9 10^3/uL (4.4-10.8)
[2023-10-24 08:40] LABS: Basophils % (manual) 0 (0.0-2.0); Blast Cells 0; Promyelocytes % 0; Reactive Lymphocytes 0
[2023-10-24 08:48] LABS: Band Neutrophils % (manual) 21; Eosinophils % (manual) 4 (0-7); Lymphocytes % (manual) 14 (10.0-50.0); Metamyelocytes % 6; Monocytes % (manual) 10 (0-12); Myelocytes % 4
[2023-10-24 08:49] LABS: Platelet Estimate Adequate
[2023-10-24] MEDS: NICOTINE 21MG/24 HR TOPICAL PATCH TD SCH (08:49)
[2023-10-24 09:44] LABS: Base Excess 3.3 mmol/L (-2.0-2.0)
[2023-10-24 11:19] LABS: Alanine Aminotransferase 23 U/L (7-40); Albumin 3.1 g/dL (3.2-4.8); Alkaline Phosphatase 299 U/L (46-116); Anion Gap 2 (5-15); Aspartate Aminotransferase 36 U/L (13-40); Bilirubin, Total 0.4 mg/dL (0.2-1.0); Blood Urea Nitrogen 12 mg/dL (9-23); Calcium 8.1 mg/dL (8.7-10.4); Carbon Dioxide 31 mmol/L (20-30); Chloride 103 mmol/L (98-107); Glucose 101 mg/dL (74-106); Phosphorus 3.8 mg/dL (2.4-5.1); Potassium 4.3 mmol/L (3.5-5.1); Sodium 136 mmol/L (136-145); Total Protein 6.5 g/dL (5.7-8.2)
[2023-10-24] MEDS: Ensure HIGH Protein Chocolate 8oz Bottle PO SCH ×3 (12:07→18:26)
[2023-10-24] MEDS: SODIUM CHLOR 0.9% PF (SALINE LOCK) 10ML VIAL/SYR IV SCH ×2 (12:11→22:50)
[2023-10-24] MEDS ORDERED: levoFLOXacin 500MG 100 ML IV ONE (12:20)
[2023-10-24] MEDS: metroNIDAZOLE 500MG/100ML 100 ML IV SCH (13:16)
[2023-10-24] MEDS: levoFLOXacin 500MG 100 ML IV SCH (13:16)
[2023-10-24] MEDS: PANTOPRAZOLE 40 MG/10 ML VIAL INJ IV SCH (13:16)
[2023-10-24] MEDS: POTASSIUM EFFERVESENT TAB 25 MEQ PO SCH ×2 (17:53→18:13)
[2023-10-24] MEDS: TPN PER PHARMACY IV NR ×9 (20:00)
[2023-10-24] MEDS ORDERED: SODIUM BICARBONATE 8.4 % INJ 50ML VIAL IV ONE ×2 (22:27)
[2023-10-24] MEDS ORDERED: fentaNYL Drip 2500mCg/250mlNS 250 ML IV ONE (22:35)
[2023-10-24] MEDS ORDERED: MIDAZOLAM DRIP 50 mg/50mL 50 ML IV ONE (22:35)
[2023-10-24] MEDS ORDERED: ACETAMINOPHEN 120 MG RECT SUPP PR ONE (22:45)
[2023-10-24] MEDS ORDERED: NOREPINEPHRINE 8 MG/250ML KIT 250 ML IV ONE (22:52)
[2023-10-24] MEDS ORDERED: DexAMETHasone SOD PHOS 10MG/1ML VIAL INJ IV ONE (23:30)
[2023-10-24] MEDS ORDERED: diphenhdrAMINE HCL 50 MG/1 ML VL IV ONE (23:30)
[2023-10-25] VITALS (106 sets, daily range): BP systolic 79–142; BP diastolic 44–92; PULSE 73–128; RESP 20–31; TEMP 96.8–101.7; O2SAT 97–100
[2023-10-25] MEDS: NOREPINEPHRINE 8 MG/250ML KIT 250 ML IV SCH (00:45)
[2023-10-25] MEDS: fentaNYL Drip 2500mCg/250mlNS 250 ML IV SCH ×2 (00:45→16:01)
[2023-10-25] MEDS: MIDAZOLAM DRIP 50 mg/50mL 50 ML IV SCH ×4 (00:45→23:23)
[2023-10-25 01:04] LABS: Base Excess 6.5 mmol/L (-2.0-2.0)
[2023-10-25 01:05] LABS: Base Excess 10.7 mmol/L (-2.0-2.0)
[2023-10-25] MEDS: ACCU-CHEK COMFORT CURVE STRIP VI SCH ×5 (01:51→23:47)
[2023-10-25] MEDS: metroNIDAZOLE 500MG/100ML 100 ML IV SCH ×3 (02:16→21:50)
[2023-10-25] MEDS: ACETAMINOPHEN 325 MG TAB PO PRN (02:16)
[2023-10-25] MEDS: ACETAMINOPHEN 650 mg PER 20.3 mL UD GT PRN (03:57)
[2023-10-25 04:15] LABS: Alanine Aminotransferase 26 U/L (7-40); Alkaline Phosphatase 269 U/L (46-116); Anion Gap 6 (5-15); BUN/Creatinine Ratio 29.3 (10.0-20.0); Blood Urea Nitrogen 12 mg/dL (9-23); Calcium 8.9 mg/dL (8.7-10.4); Carbon Dioxide 32 mmol/L (20-30); Chloride 100 mmol/L (98-107); Glucose 114 mg/dL (74-106); Potassium 3.9 mmol/L (3.5-5.1); Sodium 138 mmol/L (136-145)
[2023-10-25 04:16] LABS: Albumin 2.9 g/dL (3.2-4.8); Aspartate Aminotransferase 58 U/L (13-40); Magnesium 2.9 mg/dL (1.6-2.6)
[2023-10-25 04:17] LABS: Phosphorus 3.4 mg/dL (2.4-5.1)
[2023-10-25 04:18] LABS: Bilirubin, Total 0.4 mg/dL (0.2-1.0); Total Protein 6.4 g/dL (5.7-8.2)
[2023-10-25] MEDS: InsuLIN REG 1unit/0.01ml Soln (100units/ml) SC SCH ×5 (06:17→23:49)
[2023-10-25] MEDS: FUROSEMIDE 40 MG/4 ML VIAL IV SCH ×2 (06:20→17:13)
[2023-10-25] MEDS: ALBUTEROL SULF 2.5 MG/0.5ML(0.5%) NEB SOLN NEB SCH ×5 (06:36→23:49)
[2023-10-25 07:37] LABS: Basophils # (auto) 0 10 ^3/uL (0-0.2); Basophils % (auto) 0.3 % (0.0-2.0); Eosinophils # (auto) 0 10 ^3/uL (0-0.8); Eosinophils % (auto) 0.1 % (0.0-7.0); Hematocrit 25.8 % (36.0-46.0); Hemoglobin 8.5 g/dL (12.2-16.2); Lymphocytes # (auto) 0.3 10 ^3/uL (0.4-5.4); Lymphocytes % (auto) 3.9 % (10.0-50.0); Mean Corpuscular Hemoglobin 31.4 pg (28.0-32.0); Mean Corpuscular Volume 95.3 fL (80.0-100.0); Monocytes # (auto) 0.7 10 ^3/uL (0-1.3); Monocytes % (auto) 7.7 % (0.0-12.0); Neutrophils # (auto) 7.5 10 ^3/uL (1.6-8.6); Nucleated Red Blood Cells % 0.1 %; Red Cell Distribution Width 19.5 % (11.8-14.3); White Blood Cell 8.5 10^3/uL (4.4-10.8)
[2023-10-25 07:58] LABS: Base Excess 8.3 mmol/L (-2.0-2.0)
[2023-10-25] MEDS: Ensure HIGH Protein Chocolate 8oz Bottle PO SCH ×3 (08:00→17:33)
[2023-10-25] MEDS: PANTOPRAZOLE 40 MG/10 ML VIAL INJ IV SCH (09:29)
[2023-10-25] MEDS: levoFLOXacin 500MG 100 ML IV SCH (09:30)
[2023-10-25] MEDS: SODIUM CHLOR 0.9% PF (SALINE LOCK) 10ML VIAL/SYR IV SCH ×2 (09:32→21:50)
[2023-10-25] MEDS: NICOTINE 21MG/24 HR TOPICAL PATCH TD SCH (09:32)
[2023-10-25] MEDS ORDERED: EPINEPHrine HCL 1 MG/10 ML SYRG IV ONE (11:48)
[2023-10-25] MEDS ORDERED: SODIUM BICARBONATE 8.4% INJ 50ML SYRINGE IV ONE (11:50)
[2023-10-25] MEDS ORDERED: MAGNESIUM SULF 50% 40 MEQ/10 ML VL IV ONE (11:52)
[2023-10-25] MEDS: methylPREDNISolone SOD SUCC 40 MG/ML VL IV SCH ×2 (12:27→21:50)
[2023-10-25] MEDS: POTASSIUM EFFERVESENT TAB 25 MEQ PO SCH (17:13)
[2023-10-25] MEDS: TPN PER PHARMACY IV NR ×17 (19:47)
[2023-10-26] VITALS (106 sets, daily range): BP systolic 93–136; BP diastolic 52–92; PULSE 83–126; RESP 19–30; TEMP 95.9–99.1; O2SAT 97–100
[2023-10-26] MEDS: NOREPINEPHRINE 8 MG/250ML KIT 250 ML IV SCH (01:03)
[2023-10-26 03:56] LABS: Basophils # (auto) 0 10 ^3/uL (0-0.2); Eosinophils # (auto) 0 10 ^3/uL (0-0.8); Hemoglobin 7.9 g/dL (12.2-16.2); Neutrophils % (auto) 86.7 % (37.0-80.0)
[2023-10-26 04:00] LABS: Hematocrit 23.2 % (36.0-46.0); Lymphocytes # (auto) 0.4 10 ^3/uL (0.4-5.4); Lymphocytes % (auto) 4.5 % (10.0-50.0); Mean Corpuscular Hemoglobin 32.5 pg (28.0-32.0); Mean Corpuscular Hgb Conc. 34.1 g/dL (32.0-36.0); Mean Corpuscular Volume 95.4 fL (80.0-100.0); Monocytes # (auto) 0.7 10 ^3/uL (0-1.3); Monocytes % (auto) 8.8 % (0.0-12.0); Neutrophils # (auto) 7.1 10 ^3/uL (1.6-8.6); Red Blood Cells 2.43 10^6/uL (4.0-5.20); Red Cell Distribution Width 19.4 % (11.8-14.3); White Blood Cell 8.2 10^3/uL (4.4-10.8)
[2023-10-26 04:17] LABS: Alanine Aminotransferase 20 U/L (7-40); Albumin 2.7 g/dL (3.2-4.8); Alkaline Phosphatase 175 U/L (46-116); Aspartate Aminotransferase 29 U/L (13-40); Bilirubin, Total 0.3 mg/dL (0.2-1.0); Blood Urea Nitrogen 18 mg/dL (9-23); Calcium 8.8 mg/dL (8.5-10.1); Chloride 103 mmol/L (98-107); Glucose 180 mg/dL (74-106); Phosphorus 2.4 mg/dL (2.4-5.1); Sodium 142 mmol/L (136-145); Total Protein 6.1 g/dL (5.7-8.2); Triglycerides 77 mg/dL (< 150)
[2023-10-26 04:29] LABS: Potassium 2.4 mmol/L (3.5-5.1)
[2023-10-26 04:34] LABS: Anion Gap 6 (5-15); Carbon Dioxide 33 mmol/L (20-30)
[2023-10-26 05:14] LABS: Magnesium 1.9 mg/dL (1.6-2.6)
[2023-10-26] MEDS: POTASSIUM CHL 20MEQ/100ML 100 ML IV SCH ×3 (05:26→09:28)
[2023-10-26] MEDS: FUROSEMIDE 40 MG/4 ML VIAL IV SCH ×2 (05:54→17:44)
[2023-10-26] MEDS: ACCU-CHEK COMFORT CURVE STRIP VI SCH ×3 (05:54→17:45)
[2023-10-26] MEDS: InsuLIN REG 1unit/0.01ml Soln (100units/ml) SC SCH ×3 (05:56→17:47)
[2023-10-26] MEDS: ALBUTEROL SULF 2.5 MG/0.5ML(0.5%) NEB SOLN NEB SCH ×3 (06:10→19:07)
[2023-10-26] MEDS: Ensure HIGH Protein Chocolate 8oz Bottle PO SCH ×3 (08:00→17:48)
[2023-10-26] MEDS: levoFLOXacin 500MG 100 ML IV SCH (09:05)
[2023-10-26] MEDS: fentaNYL Drip 2500mCg/250mlNS 250 ML IV SCH (09:10)
[2023-10-26] MEDS: methylPREDNISolone SOD SUCC 40 MG/ML VL IV SCH ×2 (09:56→20:28)
[2023-10-26] MEDS: NICOTINE 21MG/24 HR TOPICAL PATCH TD SCH (09:56)
[2023-10-26] MEDS: PANTOPRAZOLE 40 MG/10 ML VIAL INJ IV SCH ×2 (09:56→17:44)
[2023-10-26] MEDS: metroNIDAZOLE 500MG/100ML 100 ML IV SCH ×2 (09:56→20:28)
[2023-10-26] MEDS: SODIUM CHLOR 0.9% PF (SALINE LOCK) 10ML VIAL/SYR IV SCH ×2 (09:59→20:29)
[2023-10-26] MEDS: MUPIROCIN 2% OINT 15gm or 22gm FOR MRSA NARES EACHNOSTRI SCH ×2 (10:21→20:29)
[2023-10-26] MEDS ORDERED: POTASSIUM PHOSPHATE 44 MEQ in D5W 5% 250 ML IV ONE (11:00)
[2023-10-26] MEDS: MIDAZOLAM DRIP 50 mg/50mL 50 ML IV SCH ×2 (12:07→18:35)
[2023-10-26] MEDS ORDERED: VANCOMYCIN PER PHARMACY 0 MG IV SCH (16:00)
[2023-10-26] MEDS: POTASSIUM EFFERVESENT TAB 25 MEQ PO SCH (17:48)
[2023-10-26] MEDS ORDERED: VANCOMYCIN 750mg/250ml 250 ML IV SCH (18:00)
[2023-10-26] MEDS: TPN PER PHARMACY IV NR ×8 (19:53)
[2023-10-26] MEDS ORDERED: TPN PER PHARMACY IV NR ×11 (20:00)
[2023-10-26] MEDS ORDERED: LORazepam 2MG/ML-1ML VIAL IV PRN (23:15)
[2023-10-27] VITALS (104 sets, daily range): BP systolic 90–158; BP diastolic 50–100; PULSE 75–112; RESP 20–34; TEMP 96.4–99; O2SAT 98–100
[2023-10-27] MEDS: MIDAZOLAM DRIP 50 mg/50mL 50 ML IV SCH ×5 (00:40→23:00)
[2023-10-27] MEDS: fentaNYL Drip 2500mCg/250mlNS 250 ML IV SCH ×2 (00:42→15:36)
[2023-10-27] MEDS: InsuLIN REG 1unit/0.01ml Soln (100units/ml) SC SCH ×4 (00:43→17:45)
[2023-10-27 05:06] LABS: Alanine Aminotransferase 16 U/L (7-40); Albumin 2.7 g/dL (3.2-4.8); Alkaline Phosphatase 147 U/L (46-116); Anion Gap 8 (5-15); Aspartate Aminotransferase 21 U/L (13-40); BUN/Creatinine Ratio 69.2 (10.0-20.0); Blood Urea Nitrogen 27 mg/dL (9-23); Calcium 7.9 mg/dL (8.7-10.4); Carbon Dioxide 31 mmol/L (20-30); Chloride 104 mmol/L (98-107); Glucose 156 mg/dL (74-106); Magnesium 1.9 mg/dL (1.6-2.6); Potassium 3.3 mmol/L (3.5-5.1); Sodium 143 mmol/L (136-145)
[2023-10-27 05:07] LABS: Bilirubin, Total 0.2 mg/dL (0.2-1.0); Phosphorus 4.6 mg/dL (2.4-5.1); Total Protein 6.1 g/dL (5.7-8.2)
[2023-10-27] MEDS: FUROSEMIDE 40 MG/4 ML VIAL IV SCH ×2 (05:07→17:31)
[2023-10-27] MEDS: ACCU-CHEK COMFORT CURVE STRIP VI SCH ×4 (05:11→17:31)
[2023-10-27] MEDS ORDERED: POTASSIUM EFFERVESENT TAB 25 MEQ PO ONE (06:15)
[2023-10-27] MEDS: ALBUTEROL SULF 2.5 MG/0.5ML(0.5%) NEB SOLN NEB SCH ×4 (06:34→18:05)
[2023-10-27] MEDS: NOREPINEPHRINE 8 MG/250ML KIT 250 ML IV SCH (06:48)
[2023-10-27] MEDS: Ensure HIGH Protein Chocolate 8oz Bottle PO SCH ×3 (08:00→17:45)
[2023-10-27] MEDS ORDERED: POTASSIUM CHL 20MEQ/100ML 100 ML IV ONE (08:30)
[2023-10-27 08:36] LABS: Base Excess 8.4 mmol/L (-2.0-2.0)
[2023-10-27] MEDS: PANTOPRAZOLE 40 MG/10 ML VIAL INJ IV SCH (09:10)
[2023-10-27] MEDS: THIAMINE 100mg/ml INJ (200mg/2ml VIAL) IV SCH (09:11)
[2023-10-27] MEDS: methylPREDNISolone SOD SUCC 40 MG/ML VL IV SCH ×2 (09:12→21:51)
[2023-10-27] MEDS: MUPIROCIN 2% OINT 15gm or 22gm FOR MRSA NARES EACHNOSTRI SCH ×2 (09:12→21:50)
[2023-10-27] MEDS: levoFLOXacin 500MG 100 ML IV SCH (09:13)
[2023-10-27] MEDS: SODIUM CHLOR 0.9% PF (SALINE LOCK) 10ML VIAL/SYR IV SCH ×2 (09:22→21:50)
[2023-10-27] MEDS: VANCOMYCIN 750mg/250ml 250 ML IV SCH ×2 (09:22→20:52)
[2023-10-27] MEDS: NICOTINE 21MG/24 HR TOPICAL PATCH TD SCH (09:22)
[2023-10-27] MEDS: metroNIDAZOLE 500MG/100ML 100 ML IV SCH ×2 (11:13→21:50)
[2023-10-27 14:12] LABS: Body Fluid Polymorphonuclear 85 % (0-25); Body Fluid Red Blood Cells 2100 CUMM (0-2000); Body Fluid White Blood Cells 330 CUMM (0-200); Body Fluid pH 9
[2023-10-27] MEDS: POTASSIUM EFFERVESENT TAB 25 MEQ PO SCH (17:30)
[2023-10-27] MEDS ORDERED: TPN PER PHARMACY IV NR ×11 (20:00)
[2023-10-28] VITALS (104 sets, daily range): BP systolic 87–156; BP diastolic 52–106; PULSE 61–89; RESP 21–30; TEMP 97.3–99.1; O2SAT 94–100
[2023-10-28] MEDS: ALBUTEROL SULF 2.5 MG/0.5ML(0.5%) NEB SOLN NEB SCH ×4 (00:03→18:27)
[2023-10-28] MEDS: NOREPINEPHRINE 8 MG/250ML KIT 250 ML IV SCH ×2 (00:45→09:00)
[2023-10-28 05:22] LABS: Alanine Aminotransferase 14 U/L (7-40); Albumin 2.5 g/dL (3.2-4.8); Alkaline Phosphatase 117 U/L (46-116); Anion Gap 4 (5-15); Aspartate Aminotransferase 17 U/L (13-40); BUN/Creatinine Ratio 91.2 (10.0-20.0); Bilirubin, Total 0.2 mg/dL (0.2-1.0); Blood Urea Nitrogen 31 mg/dL (9-23); Calcium 7.9 mg/dL (8.7-10.4); Carbon Dioxide 33 mmol/L (20-30); Chloride 106 mmol/L (98-107); Glucose 116 mg/dL (74-106); Magnesium 2.4 mg/dL (1.6-2.6); Phosphorus 3.7 mg/dL (2.4-5.1); Potassium 3.6 mmol/L (3.5-5.1); Sodium 143 mmol/L (136-145); Total Protein 5.7 g/dL (5.7-8.2)
[2023-10-28] MEDS: InsuLIN REG 1unit/0.01ml Soln (100units/ml) SC SCH ×4 (06:00→17:37)
[2023-10-28] MEDS: ACCU-CHEK COMFORT CURVE STRIP VI SCH ×4 (06:06→17:31)
[2023-10-28] MEDS: FUROSEMIDE 40 MG/4 ML VIAL IV SCH ×2 (06:06→17:30)
[2023-10-28] MEDS: Ensure HIGH Protein Chocolate 8oz Bottle PO SCH ×3 (08:00→17:12)
[2023-10-28] MEDS: VANCOMYCIN 750mg/250ml 250 ML IV SCH ×2 (08:49→21:22)
[2023-10-28] MEDS: fentaNYL Drip 2500mCg/250mlNS 250 ML IV SCH (08:54)
[2023-10-28] MEDS: levoFLOXacin 500MG 100 ML IV SCH (10:11)
[2023-10-28] MEDS: THIAMINE 100mg/ml INJ (200mg/2ml VIAL) IV SCH (10:11)
[2023-10-28] MEDS: methylPREDNISolone SOD SUCC 40 MG/ML VL IV SCH ×2 (10:12→21:30)
[2023-10-28] MEDS: MUPIROCIN 2% OINT 15gm or 22gm FOR MRSA NARES EACHNOSTRI SCH ×2 (10:12→21:32)
[2023-10-28] MEDS: SODIUM CHLOR 0.9% PF (SALINE LOCK) 10ML VIAL/SYR IV SCH ×2 (10:12→21:32)
[2023-10-28 11:07] LABS: Protein, Body Fluid 2.3 g/dL (.)
[2023-10-28] MEDS: MIDAZOLAM DRIP 50 mg/50mL 50 ML IV SCH (15:04)
[2023-10-28] MEDS: POTASSIUM EFFERVESENT TAB 25 MEQ PO SCH (17:31)
[2023-10-28] MEDS ORDERED: TPN PER PHARMACY IV NR ×11 (20:00)
[2023-10-28 21:51] LABS: Triglycerides 208 mg/dL (< 150)
[2023-10-28 21:52] LABS: LDL Cholesterol 53 mg/dL (< 100)
[2023-10-28 21:53] LABS: Cholesterol 100 mg/dL (< 200); HDL Cholesterol 26 mg/dL (40-59)
[2023-10-28] MEDS: ATORVASTATIN 20 MG TAB PO SCH (22:00)
[2023-10-29] VITALS (106 sets, daily range): BP systolic 88–141; BP diastolic 47–87; PULSE 57–87; RESP 14–31; TEMP 98.4–99.5; O2SAT 94–100
[2023-10-29] MEDS: ALBUTEROL SULF 2.5 MG/0.5ML(0.5%) NEB SOLN NEB SCH ×4 (00:22→18:22)
[2023-10-29] MEDS: FUROSEMIDE 40 MG/4 ML VIAL IV SCH ×2 (06:07→17:30)
[2023-10-29] MEDS: ACCU-CHEK COMFORT CURVE STRIP VI SCH ×5 (06:07→23:31)
[2023-10-29] MEDS: InsuLIN REG 1unit/0.01ml Soln (100units/ml) SC SCH ×5 (06:25→23:31)
[2023-10-29 07:48] LABS: Base Excess 7.6 mmol/L (-2.0-2.0)
[2023-10-29] MEDS: Ensure HIGH Protein Chocolate 8oz Bottle PO SCH ×3 (08:00→16:27)
[2023-10-29 08:05] LABS: Alanine Aminotransferase 19 U/L (7-40); Albumin 2.6 g/dL (3.2-4.8); Alkaline Phosphatase 125 U/L (46-116); Anion Gap 7 (5-15); Aspartate Aminotransferase 37 U/L (13-40); BUN/Creatinine Ratio 58.3 (10.0-20.0); Bilirubin, Total 0.2 mg/dL (0.2-1.0); Blood Urea Nitrogen 21 mg/dL (9-23); Calcium 8.1 mg/dL (8.5-10.1); Carbon Dioxide 31 mmol/L (20-30); Chloride 102 mmol/L (98-107); Glucose 144 mg/dL (74-106); Phosphorus 4.3 mg/dL (2.4-5.1); Potassium 3.8 mmol/L (3.5-5.1); Sodium 140 mmol/L (136-145); Total Protein 6.3 g/dL (5.7-8.2)
[2023-10-29 09:33] LABS: Basophils # (auto) 0 10 ^3/uL (0-0.2); Basophils % (auto) 0.2 % (0.0-2.0); Eosinophils # (auto) 0 10 ^3/uL (0-0.8); Hematocrit 23.6 % (36.0-46.0); Hemoglobin 7.8 g/dL (12.2-16.2); Lymphocytes # (auto) 0.4 10 ^3/uL (0.4-5.4); Lymphocytes % (auto) 4.6 % (10.0-50.0); Mean Corpuscular Hemoglobin 32.2 pg (28.0-32.0); Mean Corpuscular Volume 97.5 fL (80.0-100.0); Monocytes # (auto) 0.6 10 ^3/uL (0-1.3); Monocytes % (auto) 7.3 % (0.0-12.0); Neutrophils # (auto) 7.8 10 ^3/uL (1.6-8.6); Neutrophils % (auto) 87.9 % (37.0-80.0); Red Blood Cells 2.42 10^6/uL (4.0-5.20); Red Cell Distribution Width 18.3 % (11.8-14.3); White Blood Cell 8.9 10^3/uL (4.4-10.8)
[2023-10-29] MEDS ORDERED: ASPirin 81 mg TAB PO SCH (10:00)
[2023-10-29] MEDS: fentaNYL Drip 2500mCg/250mlNS 250 ML IV SCH ×2 (10:13→20:26)
[2023-10-29] MEDS: methylPREDNISolone SOD SUCC 40 MG/ML VL IV SCH ×2 (10:14→21:35)
[2023-10-29] MEDS: levoFLOXacin 500MG 100 ML IV SCH (10:14)
[2023-10-29] MEDS: THIAMINE 100mg/ml INJ (200mg/2ml VIAL) IV SCH (10:14)
[2023-10-29] MEDS: MUPIROCIN 2% OINT 15gm or 22gm FOR MRSA NARES EACHNOSTRI SCH ×2 (10:15→21:35)
[2023-10-29] MEDS: MIDAZOLAM DRIP 50 mg/50mL 50 ML IV SCH ×2 (10:15→17:31)
[2023-10-29] MEDS: SODIUM CHLOR 0.9% PF (SALINE LOCK) 10ML VIAL/SYR IV SCH ×2 (10:16→21:36)
[2023-10-29] MEDS: VANCOMYCIN 750mg/250ml 250 ML IV SCH ×2 (11:56→20:34)
[2023-10-29 15:22] LABS: Magnesium 2.5 mg/dL (1.6-2.6)
[2023-10-29] MEDS: ACETAMINOPHEN 650 mg PER 20.3 mL UD GT PRN (16:08)
[2023-10-29] MEDS: POTASSIUM EFFERVESENT TAB 25 MEQ PO SCH (17:30)
[2023-10-29] MEDS ORDERED: TPN PER PHARMACY IV NR ×9 (20:00)
[2023-10-29] MEDS: ATORVASTATIN 20 MG TAB PO SCH (21:35)
[2023-10-30] VITALS (82 sets, daily range): BP systolic 85–169; BP diastolic 49–107; PULSE 56–108; RESP 9–30; TEMP 97.5–99; O2SAT 93–100
[2023-10-30] MEDS: ALBUTEROL SULF 2.5 MG/0.5ML(0.5%) NEB SOLN NEB SCH ×4 (00:16→19:02)
[2023-10-30] MEDS: NOREPINEPHRINE 8 MG/250ML KIT 250 ML IV SCH ×2 (00:45→12:30)
[2023-10-30] MEDS: MIDAZOLAM DRIP 50 mg/50mL 50 ML IV SCH (01:23)
[2023-10-30 04:36] LABS: Alanine Aminotransferase 15 U/L (7-40); Albumin 2.4 g/dL (3.2-4.8); Alkaline Phosphatase 118 U/L (46-116); Anion Gap 7 (5-15); Aspartate Aminotransferase 26 U/L (13-40); BUN/Creatinine Ratio 80.6 (10.0-20.0); Blood Urea Nitrogen 25 mg/dL (9-23); Calcium 7.6 mg/dL (8.7-10.4); Carbon Dioxide 29 mmol/L (20-30); Chloride 102 mmol/L (98-107); Glucose 135 mg/dL (74-106); Magnesium 2.1 mg/dL (1.6-2.6); Potassium 3.6 mmol/L (3.5-5.1); Sodium 138 mmol/L (136-145)
[2023-10-30 04:37] LABS: Bilirubin, Total 0.3 mg/dL (0.2-1.0); Phosphorus 3.6 mg/dL (2.4-5.1); Total Protein 5.5 g/dL (5.7-8.2)
[2023-10-30] MEDS: FUROSEMIDE 40 MG/4 ML VIAL IV SCH ×2 (04:58→17:03)
[2023-10-30] MEDS: InsuLIN REG 1unit/0.01ml Soln (100units/ml) SC SCH ×3 (05:02→17:07)
[2023-10-30] MEDS: ACCU-CHEK COMFORT CURVE STRIP VI SCH ×3 (05:03→17:04)
[2023-10-30] MEDS: fentaNYL Drip 2500mCg/250mlNS 250 ML IV SCH (05:45)
[2023-10-30] MEDS: Ensure HIGH Protein Chocolate 8oz Bottle PO SCH ×3 (08:00→17:04)
[2023-10-30 08:31] LABS: Base Excess 7.2 mmol/L (-2.0-2.0)
[2023-10-30] MEDS: ASPirin 81 mg TAB PO SCH (09:41)
[2023-10-30] MEDS: levoFLOXacin 500MG 100 ML IV SCH (09:41)
[2023-10-30] MEDS: THIAMINE 100mg/ml INJ (200mg/2ml VIAL) IV SCH (09:41)
[2023-10-30] MEDS: methylPREDNISolone SOD SUCC 40 MG/ML VL IV SCH ×2 (09:41→21:19)
[2023-10-30] MEDS: MUPIROCIN 2% OINT 15gm or 22gm FOR MRSA NARES EACHNOSTRI SCH ×2 (09:42→21:17)
[2023-10-30] MEDS: SODIUM CHLOR 0.9% PF (SALINE LOCK) 10ML VIAL/SYR IV SCH ×2 (09:42→21:19)
[2023-10-30] MEDS: VANCOMYCIN 750mg/250ml 250 ML IV SCH ×2 (10:28→21:17)
[2023-10-30] MEDS: FOLIC ACID 1 MG in D5W 5% 50 ML INJ SCH (14:48)
[2023-10-30] MEDS: POTASSIUM EFFERVESENT TAB 25 MEQ PO SCH (17:04)
[2023-10-30] MEDS ORDERED: TPN PER PHARMACY IV NR ×11 (20:00)
[2023-10-30] MEDS: ATORVASTATIN 20 MG TAB PO SCH (21:17)
[2023-10-30] MEDS: ONDANSETRON HCL 4 MG/2 ML VIAL IV PRN (22:02)
[2023-10-31] VITALS (25 sets, daily range): BP systolic 133–164; BP diastolic 78–110; PULSE 75–97; RESP 17–37; TEMP 97.6–98.2; O2SAT 90–100
[2023-10-31] MEDS: ALBUTEROL SULF 2.5 MG/0.5ML(0.5%) NEB SOLN NEB SCH ×4 (00:01→19:04)
[2023-10-31] MEDS: ACETAMINOPHEN 650 mg PER 20.3 mL UD GT PRN (00:01)
[2023-10-31] MEDS ORDERED: HYDROcodone-ACET 7.5/325MG TAB PO PRN (00:45)
[2023-10-31 04:45] LABS: Calcium 7.9 mg/dL (8.7-10.4)
[2023-10-31 04:51] LABS: Magnesium 1.9 mg/dL (1.6-2.6)
[2023-10-31 04:52] LABS: Albumin 2.6 g/dL (3.2-4.8); Phosphorus 4.2 mg/dL (2.4-5.1)
[2023-10-31] MEDS: FUROSEMIDE 40 MG/4 ML VIAL IV SCH ×2 (05:22→18:08)
[2023-10-31] MEDS ORDERED: POTASSIUM CHL 20MEQ/100ML 100 ML IV ONE (06:00)
[2023-10-31] MEDS: ONDANSETRON HCL 4 MG/2 ML VIAL IV PRN (07:53)
[2023-10-31] MEDS: Ensure HIGH Protein Chocolate 8oz Bottle PO SCH ×2 (08:00→12:00)
[2023-10-31] MEDS ORDERED: FUROSEMIDE 20 MG/2 ML VIAL IV ONE (08:30)
[2023-10-31] MEDS: VANCOMYCIN 750mg/250ml 250 ML IV SCH ×2 (09:36→21:30)
[2023-10-31] MEDS: THIAMINE 100mg/ml INJ (200mg/2ml VIAL) IV SCH (09:49)
[2023-10-31] MEDS: levoFLOXacin 500MG 100 ML IV SCH (09:54)
[2023-10-31] MEDS: SODIUM CHLOR 0.9% PF (SALINE LOCK) 10ML VIAL/SYR IV SCH ×2 (09:55→22:41)
[2023-10-31] MEDS: methylPREDNISolone SOD SUCC 40 MG/ML VL IV SCH ×3 (09:55→22:42)
[2023-10-31] MEDS: ASPirin 81 mg TAB PO SCH (09:55)
[2023-10-31] MEDS: NOREPINEPHRINE 8 MG/250ML KIT 250 ML IV SCH (12:30)
[2023-10-31] MEDS: MORPHINE SULFATE INJ 2 MG/ml SYRG IV PRN ×2 (13:19→20:08)
[2023-10-31] MEDS: FOLIC ACID 1 MG in D5W 5% 50 ML INJ SCH (13:34)
[2023-10-31] MEDS: POTASSIUM EFFERVESENT TAB 25 MEQ PO SCH ×2 (18:09→18:10)
[2023-10-31] MEDS: ATORVASTATIN 20 MG TAB PO SCH (22:41)
[2023-10-31] MEDS ORDERED: diphenhdrAMINE HCL 50 MG/1 ML VL IV ONE (23:30)
[2023-10-31] MEDS ORDERED: ALPRAZolam 0.5 MG TAB PO ONE (23:30)
[2023-10-31] MEDS: fentaNYL Drip 2500mCg/250mlNS 250 ML IV SCH (23:31)
[2023-10-31] MEDS: MIDAZOLAM DRIP 50 mg/50mL 50 ML IV SCH (23:32)
[2023-11-01] VITALS (19 sets, daily range): BP systolic 132–148; BP diastolic 88–102; PULSE 78–104; RESP 15–99; TEMP 97.5–98.6; O2SAT 18–100
[2023-11-01 00:01] LABS: Base Excess 12.9 mmol/L (-2.0-2.0)
[2023-11-01] MEDS: ALBUTEROL SULF 2.5 MG/0.5ML(0.5%) NEB SOLN NEB SCH ×7 (00:07→22:37)
[2023-11-01] MEDS: FUROSEMIDE 40 MG/4 ML VIAL IV SCH ×2 (07:11→17:52)
[2023-11-01] MEDS: methylPREDNISolone SOD SUCC 40 MG/ML VL IV SCH ×3 (07:11→21:34)
[2023-11-01] MEDS: ENSURE CLEAR Mixed Berry 8oz Carton PO SCH ×3 (08:48→17:53)
[2023-11-01] MEDS: VANCOMYCIN 750mg/250ml 250 ML IV SCH ×2 (08:49→21:34)
[2023-11-01] MEDS: ALPRAZolam 0.5 MG TAB PO PRN ×2 (09:08→19:45)
[2023-11-01] MEDS: SODIUM CHLOR 0.9% PF (SALINE LOCK) 10ML VIAL/SYR IV SCH ×2 (10:09→21:34)
[2023-11-01] MEDS: THIAMINE 100mg/ml INJ (200mg/2ml VIAL) IV SCH (10:09)
[2023-11-01] MEDS: levoFLOXacin 500MG 100 ML IV SCH (10:09)
[2023-11-01] MEDS: POTASSIUM EFFERVESENT TAB 25 MEQ PO SCH ×2 (10:10→17:53)
[2023-11-01] MEDS: ASPirin 81 mg TAB PO SCH (10:10)
[2023-11-01 10:11] LABS: Alanine Aminotransferase 82 U/L (7-40); Albumin 3.2 g/dL (3.2-4.8); Alkaline Phosphatase 239 U/L (46-116); Anion Gap 7 (5-15); Aspartate Aminotransferase 112 U/L (13-40); BUN/Creatinine Ratio 36.8 (10.0-20.0); Bilirubin, Total 0.5 mg/dL (0.2-1.0); Blood Urea Nitrogen 14 mg/dL (9-23); Calcium 8.4 mg/dL (8.5-10.1); Carbon Dioxide 36 mmol/L (20-30); Chloride 96 mmol/L (98-107); Glucose 118 mg/dL (74-106); Potassium 3.4 mmol/L (3.5-5.1); Sodium 139 mmol/L (136-145); Total Protein 7.1 g/dL (5.7-8.2)
[2023-11-01 11:59] LABS: Basophils # (auto) 0 10 ^3/uL (0-0.2); Basophils % (auto) 0.1 % (0.0-2.0); Eosinophils # (auto) 0 10 ^3/uL (0-0.8); Hematocrit 32.3 % (36.0-46.0); Hemoglobin 10.4 g/dL (12.2-16.2); Lymphocytes # (auto) 0.3 10 ^3/uL (0.4-5.4); Lymphocytes % (auto) 2.4 % (10.0-50.0); Mean Corpuscular Hemoglobin 31.8 pg (28.0-32.0); Mean Corpuscular Hgb Conc. 32.3 g/dL (32.0-36.0); Mean Corpuscular Volume 98.3 fL (80.0-100.0); Monocytes # (auto) 0.9 10 ^3/uL (0-1.3); Monocytes % (auto) 8.1 % (0.0-12.0); Neutrophils # (auto) 10.2 10 ^3/uL (1.6-8.6); Neutrophils % (auto) 89.4 % (37.0-80.0); Red Blood Cells 3.28 10^6/uL (4.0-5.20); Red Cell Distribution Width 18.4 % (11.8-14.3); White Blood Cell 11.4 10^3/uL (4.4-10.8)
[2023-11-01] MEDS: FOLIC ACID 1 MG in D5W 5% 50 ML INJ SCH (14:33)
[2023-11-01] MEDS: MORPHINE SULFATE INJ 2 MG/ml SYRG IV PRN (17:54)
[2023-11-01] MEDS: ATORVASTATIN 20 MG TAB PO SCH (21:34)
[2023-11-01 23:47] LABS: Base Excess 13.3 mmol/L (-2.0-2.0)
[2023-11-02] VITALS (8 sets, daily range): BP systolic 79–158; BP diastolic 51–98; PULSE 77–103; RESP 18–22; TEMP 97–99; O2SAT 92–100
[2023-11-02] MEDS ORDERED: GABAPENTIN 100 MG CAP PO ONE (00:15)
[2023-11-02] MEDS: MORPHINE SULFATE INJ 2 MG/ml SYRG IV PRN (01:55)
[2023-11-02] MEDS: ALPRAZolam 0.5 MG TAB PO PRN (03:55)
[2023-11-02 06:26] LABS: Basophils # (auto) 0 10 ^3/uL (0-0.2); Basophils % (auto) 0.1 % (0.0-2.0); Eosinophils # (auto) 0 10 ^3/uL (0-0.8); Hematocrit 37.3 % (36.0-46.0); Hemoglobin 11.9 g/dL (12.2-16.2); Lymphocytes # (auto) 0.4 10 ^3/uL (0.4-5.4); Lymphocytes % (auto) 1.7 % (10.0-50.0); Mean Corpuscular Hemoglobin 31.5 pg (28.0-32.0); Mean Corpuscular Hgb Conc. 31.8 g/dL (32.0-36.0); Mean Corpuscular Volume 98.8 fL (80.0-100.0); Monocytes # (auto) 2.2 10 ^3/uL (0-1.3); Monocytes % (auto) 10.4 % (0.0-12.0); Neutrophils # (auto) 18.9 10 ^3/uL (1.6-8.6); Neutrophils % (auto) 87.8 % (37.0-80.0); Red Blood Cells 3.77 10^6/uL (4.0-5.20); Red Cell Distribution Width 18.2 % (11.8-14.3); White Blood Cell 21.5 10^3/uL (4.4-10.8)
[2023-11-02 06:44] LABS: Alanine Aminotransferase 74 U/L (7-40); Alkaline Phosphatase 212 U/L (46-116); Anion Gap 6 (5-15); Aspartate Aminotransferase 72 U/L (13-40); BUN/Creatinine Ratio 41.9 (10.0-20.0); Bilirubin, Total 0.5 mg/dL (0.2-1.0); Blood Urea Nitrogen 13 mg/dL (9-23); Calcium 8.4 mg/dL (8.5-10.1); Carbon Dioxide 38 mmol/L (20-30); Chloride 95 mmol/L (98-107); Glucose 116 mg/dL (74-106); Potassium 3.5 mmol/L (3.5-5.1); Sodium 139 mmol/L (136-145); Total Protein 6.7 g/dL (5.7-8.2)
[2023-11-02] MEDS: ALBUTEROL SULF 2.5 MG/0.5ML(0.5%) NEB SOLN NEB SCH ×2 (07:18→12:25)
[2023-11-02] MEDS: ENSURE CLEAR Mixed Berry 8oz Carton PO SCH ×2 (08:00→12:00)
[2023-11-02] MEDS: ASPirin 81 mg TAB PO SCH (10:00)
[2023-11-02] MEDS: POTASSIUM EFFERVESENT TAB 25 MEQ PO SCH (10:00)
[2023-11-02] MEDS: levoFLOXacin 500MG 100 ML IV SCH (11:15)
[2023-11-02] MEDS: THIAMINE 100mg/ml INJ (200mg/2ml VIAL) IV SCH (11:15)
[2023-11-02] MEDS: VANCOMYCIN 750mg/250ml 250 ML IV SCH (11:15)
[2023-11-02] MEDS: FOLIC ACID 1 MG in D5W 5% 50 ML INJ SCH (13:32)
[2023-11-02] MEDS: SODIUM CHLOR 0.9% PF (SALINE LOCK) 10ML VIAL/SYR IV SCH (13:33)
[2023-11-02] MEDS ORDERED: LORazepam 2MG/ML-1ML VIAL IV PRN (15:00)
[2023-11-02] MEDS ORDERED: MORPHINE SULFATE INJ 2 MG/ml SYRG IV PRN (15:30)
== END 2023-11-02 21:15 | DRG 710 ==
LOC: ER 10:56 → OVERFLOW 16:59 → CENTRAL 18:11 → WEST WING 10-04 05:49 → TELE-WESTW 10-07 07:03 → ICU WEST 10-10 16:06 → TELE-CENTR 10-13 22:13 → ICU WEST 10-24 23:46 → TELE-EAST 10-31 12:28
PROVIDERS: ADMIT Nurse Practitioner Family; ATTEND Family Medicine
PROC: 0D9670Z Drainage of Stomach with Drainage Device, Via Natural or Artificial Opening (ICD-10-PCS; 2023-10-01)
PROC: 02HV33Z Insertion of Infusion Device into Superior Vena Cava, Percutaneous Approach (ICD-10-PCS; 2023-10-04)
PROC: B548ZZA Ultrasonography of Superior Vena Cava, Guidance (ICD-10-PCS; 2023-10-04)
PROC: 0DT80ZZ Resection of Small Intestine, Open Approach (ICD-10-PCS; 2023-10-10)
PROC: 0DTN0ZZ Resection of Sigmoid Colon, Open Approach (ICD-10-PCS; 2023-10-10)
PROC: 0D1M0Z4 Bypass Descending Colon to Cutaneous, Open Approach (ICD-10-PCS; 2023-10-10)
PROC: 0DSM0ZZ Reposition Descending Colon, Open Approach (ICD-10-PCS; 2023-10-10)
PROC: 0W9G0ZZ Drainage of Peritoneal Cavity, Open Approach (ICD-10-PCS; 2023-10-10)
PROC: 30233N1 Transfusion of Nonautologous Red Blood Cells into Peripheral Vein, Percutaneous Approach (ICD-10-PCS; 2023-10-10)
PROC: 5A1945Z Respiratory Ventilation, 24-96 Consecutive Hours (ICD-10-PCS; 2023-10-20)
PROC: 0BH17EZ Insertion of Endotracheal Airway into Trachea, Via Natural or Artificial Opening (ICD-10-PCS; 2023-10-24)
PROC: 5A09357 Assistance with Respiratory Ventilation, Less than 24 Consecutive Hours, Continuous Positive Airway Pressure (ICD-10-PCS; 2023-10-24)
PROC: 5A12012 Performance of Cardiac Output, Single, Manual (ICD-10-PCS; 2023-10-24)
PROC: 5A1955Z Respiratory Ventilation, Greater than 96 Consecutive Hours (ICD-10-PCS; 2023-10-25)
PROC: 0W9B3ZZ Drainage of Left Pleural Cavity, Percutaneous Approach (ICD-10-PCS; 2023-10-27)
PROC: B24BZZ4 Ultrasonography of Heart with Aorta, Transesophageal (ICD-10-PCS; principal; 2023-10-30)
DX: A41.9 Sepsis, unspecified organism (principal); R65.21 Severe sepsis with septic shock; I63.9 Cerebral infarction, unspecified; J95.821 Acute postprocedural respiratory failure; K65.1 Peritoneal abscess; J81.0 Acute pulmonary edema; G92.8 Other toxic encephalopathy; D61.818 Other pancytopenia; J44.0 Chronic obstructive pulmonary disease with (acute) lower respiratory infection; E43 Unspecified severe protein-calorie malnutrition; J44.1 Chronic obstructive pulmonary disease with (acute) exacerbation; K57.20 Diverticulitis of large intestine with perforation and abscess without bleeding; I46.9 Cardiac arrest, cause unspecified; K56.50 Intestinal adhesions [bands], unspecified as to partial versus complete obstruction; D69.6 Thrombocytopenia, unspecified; K76.0 Fatty (change of) liver, not elsewhere classified; E87.1 Hypo-osmolality and hyponatremia; E87.6 Hypokalemia; E86.0 Dehydration; F12.10 Cannabis abuse, uncomplicated; K80.20 Calculus of gallbladder without cholecystitis without obstruction; R74.01 Elevation of levels of liver transaminase levels; F17.210 Nicotine dependence, cigarettes, uncomplicated; I10 Essential (primary) hypertension; R76.8 Other specified abnormal immunological findings in serum; J98.11 Atelectasis; H55.00 Unspecified nystagmus; J18.9 Pneumonia, unspecified organism; J93.83 Other pneumothorax; T79.7XXA Traumatic subcutaneous emphysema, initial encounter; Z88.0 Allergy status to penicillin; Z68.1 Body mass index [BMI] 19.9 or less, adult; Z82.5 Family history of asthma and other chronic lower respiratory diseases; Z83.3 Family history of diabetes mellitus; Z80.3 Family history of malignant neoplasm of breast; Z82.41 Family history of sudden cardiac death; E88.09 Other disorders of plasma-protein metabolism, not elsewhere classified; F41.9 Anxiety disorder, unspecified; F10.10 Alcohol abuse, uncomplicated; D64.9 Anemia, unspecified; Z79.82 Long term (current) use of aspirin; N73.6 Female pelvic peritoneal adhesions (postinfective)
CPT/HCPCS: 36415; 36569; 36600; 70450; 70551; 71045; 71250; 74018; 74176; 74181; 74250; 76604; 76705; 76942; 80048; 80053; 80061; 80069; 80202; 81001; 82105; 82140; 82248; 82270; 82607; 82728; 82746; 82805; 82962; 83036; 83605; 83615; 83690; 83735; 83880; 83986; 84100; 84132; 84439; 84443; 84478; 85007; 85025; 85027; 85045; 85610; 85730; 86038; 86703; 86704; 86706; 86708; 86803; 86850; 86900; 86901; 86920; 87040; 87070; 87075; 87077; 87081; 87086; 87186; 87205; 87340; 89051; 92950; 93005; 93312; 93886; 94002; 94003; 94640; 94660; 97110; 97116; 97163; 97530; C9113; G0378; J0330; J1100; J1447; J1815; J1956; J2001; J2250; J2405; J2704; J3430; J3480; J3490; J7042; J7060; J7131; P9047